=== PATIENT | male | born 1940 | race Caucasian/White ===

== ENCOUNTER → 2018-10-23 | Outpatient (CLI) | payer MEDICARE ==
--- NOTE | 2018-10-23 16:52 | CT ---
EXAMINATION TYPE: CT abdomen pelvis wo con DATE OF EXAM: 10/23/2018 COMPARISON: None HISTORY: Left side inguinal pain. CT DLP: 613 mGycm Automated exposure control for dose reduction was used. TECHNIQUE: Helical acquisition of images was performed from the lung bases through the pelvis. FINDINGS: Lack of intravenous contrast limits evaluation of the solid viscera. LUNG BASES: There is partial visualization of cardiomegaly. Minimal bibasilar subsegmental atelectasi s is noted. LIVER/GB: Unenhanced liver is unremarkable. Gallbladder is surgically absent. PANCREAS: No significant abnormality is seen. SPLEEN: No significant abnormality is seen. ADRENALS: No significant abnormality is seen. KIDNEYS: There is bilateral cortical renal thinning. A peripherally calcified left upper pole 1.8 cm lesion is seen that is incompletely characterized as well as an elongated hypoattenuated lesion that appears to blend with a prominent, Mt on series 3 image 27 requiring further evaluation. Renal ar terial calcifications are also seen. No hydronephrosis. FREE AIR: No free air is visualized REPRODUCTIVE ORGANS: Homogenous with central zone calcifications. URINARY BLADDER: Nondistended and incompletely evaluated. ADENOPATHY: There is a a peripherally calcified rounded structure in the right mesorectal fat that m ay represent a calcified lymph node measuring 1.3 cm in short axis on series 3 image 73. Overall this is likely benign with adjacent similar appearing structure inferior to this on image 76. No concerni ng adenopathy is seen within the abdomen or pelvis. OSSEOUS STRUCTURES: Mild multilevel degenerative changes of the spine are present as well as diffuse osseous demineralization. BOWEL: There is a left inguinal hernia containing sigmoid colon. No proximal dilatation of sigmoid c olon or distal complete decompression to indicate current incarceration/obstruction. There are few co lonic diverticula present without pericolonic fat stranding. Overall no dilated large or small bowel. 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 The firs t is seen on series 3 image 33 with calcified intimal flap than on series 3 image 44 and subsequently an series 3 image 49. No aneurysmal dilatation is seen. Extensive calcific atheromatous changes of t he abdominal aorta are noted. IMPRESSION: 1. SIGMOID COLON CONTAINING LEFT INGUINAL HERNIA. NO CURRENT EVIDENCE OF BOWEL OBSTRUCTION. 2. MULTIFOCAL CHRONIC INFRARENAL ABDOMINAL AORTIC DISSECTION. CTA ABDOMEN AND PELVIS COULD FURTHER SESS THIS FINDING. 3. LEFT RENAL LESIONS REQUIRING FURTHER EVALUATION. THREE-PHASE ENHANCED CT IS RECOMMENDED OF THE ABD OMEN. IF LABORATORY VALUES ARE NOT FITTING MRI COULD BE PERFORMED WITH A LOWER GFR. IF MRI CANNOT BE PERFORMED ULTRASOUND WOULD BE RECOMMENDED.
== END | disposition home or self-care (01) ==
LOC: RADCTMAIN 13:01
PROVIDERS: ATTEND Surgery Plastic and Reconstructive Surgery
DX: K40.90 Unilateral inguinal hernia, without obstruction or gangrene, not specified as recurrent (principal); I71.02 Dissection of abdominal aorta; N28.9 Disorder of kidney and ureter, unspecified; Z87.19 Personal history of other diseases of the digestive system
CPT/HCPCS: 74176

== ENCOUNTER 2018-10-29 15:23 | Observation (INO) | payer MEDICARE ==
[2018-10-29 18:33] LABS: Basophils # (A) 0.1 k/uL (0-0.2); Basophils % (A) 1 %; Eosinophils # (A) 0.1 k/uL (0-0.7); Eosinophils % (A) 1 %; HCT 47.8 % (39.0-53.0); Lymphocytes # (A) 1.4 k/uL (1.0-4.8); Lymphocytes % (A) 18 %; MCH 32.5 pg (25.0-35.0); MCHC 33.5 g/dL (31.0-37.0); MCV 96.9 fL (80.0-100.0); Mean Platelet Volume 10.8; Monocytes # (A) 0.5 k/uL (0-1.0); Monocytes % (A) 6 %; Neutrophils # (A) 5.6 k/uL (1.3-7.7); Neutrophils % (A) 72 %; Platelet Count 150 k/uL (150-450); RBC 4.94 m/uL (4.30-5.90); RDW 13.5 % (11.5-15.5); WBC 7.8 k/uL (3.8-10.6)
[2018-10-29 18:44] LABS: Creatine Kinase 46 U/L (55-170)
[2018-10-29 18:45] LABS: Albumin 4.3 g/dL (3.5-5.0); Calcium 9.6 mg/dL (8.4-10.2); Magnesium 1.8 mg/dL (1.6-2.3); Potassium 4.4 mmol/L (3.5-5.1); Total Bilirubin 0.4 mg/dL (0.2-1.3); Total Protein 7.1 g/dL (6.3-8.2)
[2018-10-29 18:46] LABS: INR 1.1 (<1.2); Prothrombin Time 10.9 sec (9.0-12.0)
[2018-10-29 18:56] LABS: Troponin I <0.012 ng/mL (0.000-0.034)
--- NOTE | 2018-10-29 19:13 | XR ---
EXAMINATION TYPE: XR chest 2V DATE OF EXAM: 10/29/2018 COMPARISON: NONE HISTORY: Chest pain TECHNIQUE: Frontal and lateral views of the chest are obtained. FINDINGS: There is no heart failure nor confluent pneumonic infiltrate. Costophrenic angles are fair ly clear. There is minimal pleural reaction at the posterior lung bases on the lateral view. Thoracic aorta is atheromatous. Bony thorax is intact. IMPRESSION: Minimal pleural reaction at the lung bases. Normal heart.
--- NOTE | 2018-10-29 19:25 | ED ---
General Adult HPI - General Chief complaint: Recheck/Abnormal Lab/Rx Stated complaint: trevor ravi tests Source: patient, RN notes reviewed Mode of arrival: ambulatory Limitations: no limitations - History of Present Illness Initial comments: 78-year-old male presents to the emergency department for a chief complaint of abnormal computed tomography scan. Patient was sent in by Dr. Rodrigez for 2 areas of focal chronic dissection confirmed in the infrarenal abdominal aorta. Patient states this CT was ordered to image and inguinal hernia and they found the dissection. He denies any chest pain or shortness of breath. Patient denies any abdominal pain. Patient takes Toprol for blood pressure medication and is on Eliquis for A. fib. Patient has no other complaints at this time including shortness of breath, chest pain, abdominal pain, nausea or vomiting, headache, or visual changes. - Related Data Home Medications Medication Instructions Recorded Confirmed ALPRAZolam [Xanax] 0.25 mg PO Q6HR PRN 09/19/14 01/03/15 Acetaminophen Butalb/Cafn 1 tab PO TID PRN 09/19/14 01/03/15 Alaway 1 drop BOTH EYES BID 09/19/14 01/03/15 Allopurinol [Zyloprim] 300 mg PO DAILY 09/19/14 01/03/15 Calcium Carbonate [Tums] 750 mg PO HS 09/19/14 01/03/15 Centrum Silver 50 Plus For Men 1 tab PO DAILY 09/19/14 01/03/15 Chlorpheniramine Maleate 4 mg PO Q4-6H PRN 09/19/14 01/03/15 [Chlor-Trimeton] Olmesartan Medoxomil [Benicar] 20 mg PO AC-LUNCH 09/19/14 01/03/15 [place] 3 Lemon Fish [id number] 120mg 1 tab PO BID 09/19/14 01/03/15 Omeprazole [PriLOSEC] 20 mg PO Q48H 09/19/14 01/03/15 Rivaroxaban [Xarelto] 20 mg PO HS 09/19/14 01/03/15 Simvastatin [Zocor] 40 mg PO HS 09/19/14 01/03/15 Metoprolol Succinate [Toprol XL] 12.5 mg PO TID 12/28/14 01/03/15 Ciclopirox [Loprox] 30 ml TP Q72H 01/03/15 01/03/15 Clobetasol Propionate [Olux] 10 gm TP DAILY 01/03/15 01/03/15 metroNIDAZOLE 1% GEL [Metrogel] 1 applic TOPICAL BID 01/03/15 01/03/15 Previous Rx's Medication Instructions Recorded Magnesium Chloride [Slow Mag] 128 mg PO ONCE #1 tablet.er 09/23/14 Spironolactone [Aldactone] 25 mg PO DAILY #1 tablet 09/23/14 amLODIPine BESYLATE [Norvasc] 2.5 mg PO BID #100 09/23/14 HYDROcodone/APAP 5-325MG [[place] 1 - 2 each PO Q6HR PRN #90 tab 01/04/15 5-325] Allergies Allergy/AdvReac Type Severity Reaction Status Date / Time No Known Allergies Allergy Verified 10/29/18 22:19 Review of Systems ROS Statement: Those systems with pertinent positive or pertinent negative responses have been documented in the HPI. ROS Other: All systems not noted in ROS Statement are negative. Past Medical History Past Medical History: Atrial Fibrillation, Eye Disorder, GERD/Reflux, Hyperlipidemia, Hypertension, Memory Impairment, Osteoarthritis (OA), Sleep Apnea/CPAP/BIPAP Additional Past Medical History / Comment(s): 01/03/15 Pt admitted for floor s/p Total L knee. 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 USES CPAP AT HOME-INSTRUCTED TO BRING DAY OF SURGERY, VERY DRY EYES History of Any Multi-Drug Resistant Organisms: None Reported Past Surgical History: Cholecystectomy, Heart Catheterization, Hernia Repair Additional Past Surgical History / Comment(s): 01/03/15 Total L knee arthroplasty. LT EYE CATARACT, RT KNEE ARTHROCOPY AND REPAIR OF MENISCUS TEAR, COLONOSCOPY, ORIF LT WRIST Past Anesthesia/Blood Transfusion Reactions: No Reported Reaction Past Psychological History: Anxiety Smoking Status: Former smoker Past Alcohol Use History: Occasional Past Drug Use History: None Reported - Past Family History Father Family Medical History: Myocardial Infarction ([place]) Additional Family Medical History / Comment(s): Father at age 51 yrs of an [place]. Mother Family Medical History: Hypertension Additional Family Medical History / Comment(s): Mother at age 34 yrs from suicide. General Exam Limitations: no limitations General appearance: alert, in no apparent distress (Well appearing, pleasant) Head exam: Present: atraumatic, normocephalic, normal inspection Eye exam: Present: normal appearance, PERRL, EOMI. Absent: scleral icterus, conjunctival injection, periorbital swelling ENT exam: Present: normal exam, mucous membranes moist Neck exam: Present: normal inspection, full ROM. Absent: tenderness, meningismus, lymphadenopathy Respiratory exam: Present: normal lung sounds bilaterally. Absent: respiratory distress, wheezes, rales, rhonchi, stridor Cardiovascular Exam: Present: regular rate, normal rhythm, normal heart sounds. Absent: bradycardia, tachycardia, irregular rhythm GI/Abdominal exam: Present: soft, normal bowel sounds. Absent: distended, tenderness, guarding, rebound, rigid, mass, pulsatile mass Neurological exam: Present: alert, oriented X3, CN II-XII intact Psychiatric exam: Present: normal affect, normal mood Course Vital Signs 10/29/18 10/29/18 10/29/18 16:47 19:28 19:50 Temperature 97.8 F 97.5 F L Pulse Rate 81 83 75 Respiratory 18 18 16 Rate Blood Pressure 150/84 125/95 118/73 O2 Sat by Pulse 99 97 95 Oximetry 10/29/18 21:04 Temperature Pulse Rate 89 Respiratory 18 Rate Blood Pressure 138/78 O2 Sat by Pulse 97 Oximetry EKG Findings - EKG Comments: EKG Findings:: Atrial fibrillation, ventricular rate 90, QRS duration 82, QTC 445 Medical Decision Making - Medical Decision Making 78-year-old male with a computed medical history presents to the emergency department for an abnormal computed tomography scan sent in by Dr. Rodrigez. Patient has what appears to be a chronic dissection of the infrarenal aorta. He states he got the scan because they were imaging an inguinal hernia when they found the dissection. He states Dr. Rodrigez told him to present to the emergency department. On exam patient is well-appearing. EKG does show atrial fibrillation, patient is currently on thinners for this. Lungs are clear to auscultation bilaterally. Patient is well-appearing. No abdominal mass noted. CBC and CMP are unremarkable. Troponin is negative. Chest x-ray showed minimal pleural reaction at the lung bases, otherwise normal heart. Vitals are stable. Blood pressure is controlled. According to Dr. Rordigez patient is to be admitted to Dr. Jiménez. Discussed with Dr Frazier. - Lab Data Result diagrams: 10/29/18 18:01 10/29/18 18:01 Lab Results 10/29/18 10/29/18 10/29/18 Range/Units 18:01 18:01 18:01 WBC 7.8 (3.8-10.6) k/uL RBC 4.94 (4.30-5.90) m/uL Hgb 16.0 (13.0-17.5) gm/dL Hct 47.8 (39.0-53.0) % MCV 96.9 (80.0-100.0) fL MCH 32.5 (25.0-35.0) pg MCHC 33.5 (31.0-37.0) g/dL RDW 13.5 (11.5-15.5) % Plt Count 150 (150-450) k/uL Neutrophils % 72 % Lymphocytes % 18 % Monocytes % 6 % Eosinophils % 1 % Basophils % 1 % Neutrophils # 5.6 (1.3-7.7) k/uL Lymphocytes # 1.4 (1.0-4.8) k/uL Monocytes # 0.5 (0-1.0) k/uL Eosinophils # 0.1 (0-0.7) k/uL Basophils # 0.1 (0-0.2) k/uL PT (9.0-12.0) sec INR (<1.2) APTT (22.0-30.0) sec Sodium 137 (137-145) mmol/L Potassium 4.4 (3.5-5.1) mmol/L Chloride 102 (98-107) mmol/L Carbon Dioxide 27 (22-30) mmol/L Anion Gap 8 mmol/L BUN 19 (9-20) mg/dL Creatinine 1.02 (0.66-1.25) mg/dL Est GFR (CKD-EPI)AfAm 81 (>60 ml/min/1.73 sqM) Est GFR (CKD-EPI)NonAf 70 (>60 ml/min/1.73 sqM) Glucose 115 H (74-99) mg/dL Calcium 9.6 (8.4-10.2) mg/dL Magnesium 1.8 (1.6-2.3) mg/dL Total Bilirubin 0.4 (0.2-1.3) mg/dL AST 30 (17-59) U/L ALT 35 (21-72) U/L Alkaline Phosphatase 84 (38-126) U/L Total Creatine Kinase 46 L (55-170) U/L CK-MB (CK-2) 1.0 (0.0-2.4) ng/mL CK-MB (CK-2) Rel Index 2.2 Troponin I <0.012 (0.000-0.034) ng/mL Total Protein 7.1 (6.3-8.2) g/dL Albumin 4.3 (3.5-5.0) g/dL 10/29/18 Range/Units 18:01 WBC (3.8-10.6) k/uL RBC (4.30-5.90) m/uL Hgb (13.0-17.5) gm/dL Hct (39.0-53.0) % MCV (80.0-100.0) fL MCH (25.0-35.0) pg MCHC (31.0-37.0) g/dL RDW (11.5-15.5) % Plt Count (150-450) k/uL Neutrophils % % Lymphocytes % % Monocytes % % Eosinophils % % Basophils % % Neutrophils # (1.3-7.7) k/uL Lymphocytes # (1.0-4.8) k/uL Monocytes # (0-1.0) k/uL Eosinophils # (0-0.7) k/uL Basophils # (0-0.2) k/uL PT 10.9 (9.0-12.0) sec INR 1.1 (<1.2) APTT 25.0 (22.0-30.0) sec Sodium (137-145) mmol/L Potassium (3.5-5.1) mmol/L Chloride (98-107) mmol/L Carbon Dioxide (22-30) mmol/L Anion Gap mmol/L BUN (9-20) mg/dL Creatinine (0.66-1.25) mg/dL Est GFR (CKD-EPI)AfAm (>60 ml/min/1.73 sqM) Est GFR (CKD-EPI)NonAf (>60 ml/min/1.73 sqM) Glucose (74-99) mg/dL Calcium (8.4-10.2) mg/dL Magnesium (1.6-2.3) mg/dL Total Bilirubin (0.2-1.3) mg/dL AST (17-59) U/L ALT (21-72) U/L Alkaline Phosphatase (38-126) U/L Total Creatine Kinase (55-170) U/L CK-MB (CK-2) (0.0-2.4) ng/mL CK-MB (CK-2) Rel Index Troponin I (0.000-0.034) ng/mL Total Protein (6.3-8.2) g/dL Albumin (3.5-5.0) g/dL - Radiology Data Radiology results: report reviewed Disposition Clinical Impression: Aortic dissection, abdominal Disposition: ADMITTED IP TO THIS HOSP Condition: Good Is patient prescribed a controlled substance at d/c from ED?: No Time of Disposition: 20:18
[2018-10-29] MEDS ORDERED: NALOXONE 0.4 MG/ML 1 ML VIAL IV PRN (20:09)
[2018-10-29] MEDS ORDERED: SODIUM CHLORIDE 0.9% 1,000 ML IV SCH (20:15)
[2018-10-29] MEDS: METOPROLOL SUCCINATE (ER) 25 MG TAB.ER.24H PO SCH (22:37)
--- NOTE | 2018-10-30 11:23 | CONS ---
CONSULTATION Mr. Burrows is a 78-year-old male with a history of hypertension, history of chronic persistent atrial fibrillation, who had a left inguinal hernia, underwent CT scan as part of his evaluation and subsequently, CT angiogram and was found to have a chronic dissection in the abdominal aorta and because of that, he was referred to the emergency room, subsequently admitted. Patient denies any prior history or knowledge of a dissection or an aneurysm. He is reasonably active physically, walks a mile without any difficulty. Denies any dyspnea. No dizziness. No palpitation. No syncope. He has the atrial fibrillation that has been persistent, but has been asymptomatic in that regard. He is feeling well at this time without any change in his status. His coronary risk factors are remarkable for hyperlipidemia, hypertension. He is nonsmoker, nondiabetic. MEDICATION: Include Cozaar 50 mg daily, Xarelto 20 mg daily, Aldactone 12.5 mg daily, Lozol 1.5 mg daily, Toprol-XL 150 mg daily, Celexa 10 mg daily, simvastatin 40 mg daily, Dyazide. REVIEW OF SYSTEMS: RESPIRATORY SYSTEM: He has no recent history of wheezing, cough, or history of obstructive lung disease. GI SYSTEM: No recent GI bleeding noted. No peptic ulcer disease. He is dehydrated. SYSTEM: No hematuria. Some symptoms of dysuria. NERVOUS SYSTEM: He had a remote history of stroke without recurrence. PHYSICAL EXAMINATION: A 78-year-old male, alert, oriented, in no apparent distress. Blood pressure 148/80 with a heart in the 80s. HEAD: Normocephalic. EYES: Sclerae nonicteric. NECK: Good upstroke, no bruit, no jugular venous distension. LUNGS: Clear to auscultation. HEART: Irregularly irregular, S1, S2. No S3 with systolic murmur heard at the base. No diastolic murmur, no rub. ABDOMEN: Soft, mild tenderness in the left inguinal area. Positive bowel sounds, no organomegaly. EXTREMITIES: No edema, intact pulses. LAB DATA: Revealed a BUN and creatinine of 19 and 1.02, potassium 4.4. Troponin less than 0.012. Hemoglobin of 16, white blood cell of 7.8. EKG reveals atrial fibrillation with nonspecific ST-T wave changes, cannot exclude a prior inferior myocardial infarction. Chest x-ray shows no evidence of acute infiltrate. CT scan of the abdomen performed yesterday shows moderate atherosclerotic changes with no hemodynamic significant stenosis in the abdominal aorta. There are two areas of focal chronic dissection in the infrarenal abdominal aorta with no aneurysmal changes. IMPRESSION: 1. Appearance of chronic dissection in the abdominal aorta, asymptomatic, duration unknown. 2. Chronic persistent atrial fibrillation. 3. Hypertension. 4. Hyperlipidemia. 5. History of inguinal hernia. RECOMMENDATION: From the cardiac standpoint, the patient had an echocardiogram done recently that showed a preserved ventricular size and systolic function. I will resume his routine medication at home. Patient will need evaluation by Vascular Surgery. I do not see any emergency for surgical intervention at this time. If surgical intervention is needed, he may benefit from a myocardial perfusion imaging that can be done as an outpatient. Thank you for this consult. Will follow with you. OSBALDO / YEVGENIYN: [id number] /
[2018-10-30] MEDS: METOPROLOL SUCCINATE (ER) 25 MG TAB.ER.24H PO SCH (12:27)
[2018-10-30 13:56] VITALS: BMI 23.3
--- NOTE | 2018-10-30 15:27 | P.DS ---
Providers Date of admission: 10/29/18 19:57 Expected date of discharge: 10/30/18 Attending physician: Maris Nguyen Consults: 10/30/18 09:09 Consult Physician Urgent Consulting Provider: Moose Maxwell Consult Reason/Comments: abn ct poss infrarenal aortic dissection Do you want consulting provider notified?: Yes 10/30/18 09:15 Consult Physician Urgent Consulting Provider: Anthony Lopez Consult Reason/Comments: afib Do you want consulting provider notified?: Yes Primary care physician: [facility] Course: 78-year-old who lives in [facility] presented to the emergency room to be evaluated for an abnormal computerized CAT scan abdomen and pelvis. Patient had a computed tomography scan to evaluate a known left inguinal hernia. The computed tomography scan was done it did find a chronic dissection in the abdominal aorta. Because of the abnormal findings on the CAT scan patient was referred to the emergency room and subsequently was admitted. Patient has been seen by cardiology as well as vascular service. Patient does have a history of atrial fibrillation that has been persistent patient has been asymptomatic and is on Xarelto. Patient denied chest pain dizziness or lightheadedness or back pain when questioning patient had a recent echocardiogram done which did show preserved ventricular size and systolic function. Cardiology recommended that the patient could be continued on his Xarelto in follow-up in the office with no further cardiac workup indicated at this time. Additionally patient was seen by vascular surgery . Vascular disease the patient for CAT scan of the abdomen which showed moderate atherosclerotic changes to areas of focal chronic dissection in the infrarenal abdominal aorta with no aneurysm changes. Vascular indicated there was no surgical intervention indicated at this time and that it needs to be followed it could be done in the outpatient setting labs were reviewed the hemoglobin 16 white count 7.8 electrolytes within normal limits Impression discharge diagnoses A known left inguinal hernia Persistent atrial fibrillation controlled ventricular response on Xarelto An abnormal CAT scan of the abdomen pelvis showed moderate atherosclerotic changes in the area of focal chronic dissection in the infrarenal abdominal aorta with no aneurysm the changes A recent echocardiogram showed preserved LV function Hypertension Hyperlipidemia Appearance of chronic dissection in the abdominal aorta asymptomatic duration unknown The above impression and plan of care have been discussed and directed by signing physician. Shala Barrow nurse practitioner acting as scribe for signing physician. Patient Condition at Discharge: Good Plan - Discharge Summary Discharge Rx Participant: No New Discharge Prescriptions: Continue Simvastatin [Zocor] 40 mg PO HS Rivaroxaban [Xarelto] 20 mg PO HS ALPRAZolam [Xanax] 0.25 mg PO TID PRN PRN Reason: Anxiety Alaway 1 drop BOTH EYES BID Chlorpheniramine Maleate [Chlor-Trimeton] 4 mg PO Q4H PRN PRN Reason: Allergy Symptoms Calcium Carbonate [Tums] 750 mg PO HS Allopurinol [Zyloprim] 300 mg PO DAILY Triamterene-Hctz 37.5-25Mg [Dyazide 37.5-25 Capsule] 1 cap PO DAILY Buckhead-3 Fatty Acids/Fish Oil [Buckhead-3 Fish Oil 1,200 mg Sfgl] 1 cap PO DAILY Multivit-Min/FA/Lycopen/Lutein [Centrum Silver Men Tablet] 1 tab PO DAILY Nystatin 100,000 Unit/gm Powd [Mycostatin Powder] 1 applic TOPICAL DAILY Butalb/APAP/Caff 50-325-40Mg [Fioricet 50-325-40] 1 - 2 tab PO Q4H PRN MDD 6 TABS PRN Reason: Headache Allopurinol [Zyloprim] 100 mg PO DAILY Omeprazole [PriLOSEC] 20 mg PO DAILY Citalopram Hydrobromide [CeleXA] 10 mg PO DAILY Metoprolol Succinate [Toprol XL] 100 mg PO QAM Metoprolol Succinate (ER) [Toprol XL] 50 mg PO HS Indapamide [Lozol] 1.25 mg PO DAILY Spironolactone [Aldactone] 12.5 mg PO DAILY Losartan [Cozaar] 50 mg PO HS Discharge Medication List ALPRAZolam [Xanax] 0.25 mg PO TID PRN 09/19/14 [History] Alaway 1 drop BOTH EYES BID 09/19/14 [History] Allopurinol [Zyloprim] 300 mg PO DAILY 09/19/14 [History] Calcium Carbonate [Tums] 750 mg PO HS 09/19/14 [History] Chlorpheniramine Maleate [Chlor-Trimeton] 4 mg PO Q4H PRN 09/19/14 [History] Rivaroxaban [Xarelto] 20 mg PO HS 09/19/14 [History] Simvastatin [Zocor] 40 mg PO HS 09/19/14 [History] Allopurinol [Zyloprim] 100 mg PO DAILY 10/30/18 [History] Butalb/APAP/Caff 50-325-40Mg [Fioricet 50-325-40] 1 - 2 tab PO Q4H PRN MDD 6 TABS 10/30/18 [History] Citalopram Hydrobromide [CeleXA] 10 mg PO DAILY 10/30/18 [History] Indapamide [Lozol] 1.25 mg PO DAILY 10/30/18 [History] Losartan [Cozaar] 50 mg PO HS 10/30/18 [History] Metoprolol Succinate (ER) [Toprol XL] 50 mg PO HS 10/30/18 [History] Metoprolol Succinate [Toprol XL] 100 mg PO QAM 10/30/18 [History] Multivit-Min/FA/Lycopen/Lutein [Centrum Silver Men Tablet] 1 tab PO DAILY [History] Nystatin 100,000 Unit/gm Powd [Mycostatin Powder] 1 applic TOPICAL DAILY [History] Buckhead-3 Fatty Acids/Fish Oil [Buck[place]-3 Fish Oil 1,200 mg Sfgl] 1 cap PO DAILY [History] Omeprazole [PriLOSEC] 20 mg PO DAILY 10/30/18 [History] Spironolactone [Aldactone] 12.5 mg PO DAILY 10/30/18 [History] Triamterene-Hctz 37.5-25Mg [Dyazide 37.5-25 Capsule] 1 cap PO DAILY 10/30/18 [ History] Follow up Appointment(s)/Referral(s): Conor Snell MD [Primary Care Provider] - 1-2 days Maris Nguyen MD [STAFF PHYSICIAN] - 12/08/18 Moose Maxwell MD [STAFF PHYSICIAN] - 2 Weeks Patient Instructions/Handouts: Coronary Artery Disease (DC), Heart Healthy Diet (DC) Discharge Disposition: HOME SELF-CARE
--- NOTE | 2018-10-30 15:41 | CONS ---
CONSULTATION This patient is a 78-year-old gentleman with a history of hypertension, history of chronic persistent atrial fibrillation, who had a left inguinal hernia diagnosed, and patient was cleared for surgery. He had a CT scan of the abdomen and was found to have a chronic dissection of the abdominal aorta area. There are some moderate atherosclerotic changes without hemodynamically significant stenosis seen in the abdominal aorta or its branches. There are two areas of focal chronic dissection confirmed in the infrarenal abdominal aorta and dilatation and dissection progressing to the iliac artery. I was consulted for evaluation. SURGICAL HISTORY: Patient had a cholecystectomy in the past. PHYSICAL EXAMINATION: Patient was seen in his room, lying comfortably in bed. NECK: Supple. Trachea central. CHEST: Clear on auscultation. ABDOMEN: Soft, nontender. VASCULAR EXAMINATION: Femorals are palpable bilaterally. Patient has a large inguinal hernia which is reducible. IMPRESSION: Chronic small area of dissection to the infrarenal aorta. At this point there is no evidence of any vascular compromise. RECOMMENDATION: Control of the blood pressure. No indication for surgery. Patient can be discharged from the vascular point of view. The patient will follow up in my office in 2 weeks. MMODL / IJN: [id number] /
[2018-10-30 16:46] VITALS: BP 115/67; PULSE 99; RESP 18; TEMP 98.3
[2018-10-30] MEDS ORDERED: RIVAROXABAN 20 MG TAB PO SCH (21:00)
[2018-10-30] MEDS ORDERED: METOPROLOL SUCCINATE (ER) 50 MG TAB.ER.24H PO SCH (21:00)
[2018-10-30] MEDS ORDERED: LOSARTAN 50 MG TAB PO SCH (21:00)
[2018-10-30] MEDS ORDERED: ATORVASTATIN 20 MG TAB PO SCH (21:00)
[2018-10-31] MEDS ORDERED: TRIAMTERENE-HCTZ 37.5-25MG 1 EACH CAP PO SCH (09:00)
[2018-10-31] MEDS ORDERED: METOPROLOL SUCCINATE (ER) 100 MG TAB.ER.24H PO SCH (09:00)
--- NOTE | 2018-11-02 19:33 | P.GSHP ---
History of Present Illness H&P Date: 10/29/18 Past Medical History Past Medical History: Atrial Fibrillation, Eye Disorder, GERD/Reflux, Hyperlipidemia, Hypertension, Memory Impairment, Osteoarthritis (OA), Sleep Apnea/CPAP/BIPAP Additional Past Medical History / Comment(s): 01/03/15 Pt admitted for floor s/p Total L knee. 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 USES CPAP AT HOME-INSTRUCTED TO BRING DAY OF SURGERY, VERY DRY EYES History of Any Multi-Drug Resistant Organisms: None Reported Past Surgical History: Cholecystectomy, Heart Catheterization, Hernia Repair Additional Past Surgical History / Comment(s): 01/03/15 Total L knee arthroplasty. LT EYE CATARACT, RT KNEE ARTHROCOPY AND REPAIR OF MENISCUS TEAR, COLONOSCOPY, ORIF LT WRIST Past Anesthesia/Blood Transfusion Reactions: No Reported Reaction Past Psychological History: Anxiety Smoking Status: Former smoker Past Alcohol Use History: Occasional Past Drug Use History: None Reported - Past Family History Father Family Medical History: Myocardial Infarction ([place]) Additional Family Medical History / Comment(s): Father at age 51 yrs of an [place]. Mother Family Medical History: Hypertension Additional Family Medical History / Comment(s): Mother at age 34 yrs from suicide. Medications and Allergies Home Medications Medication Instructions Recorded Confirmed Type ALPRAZolam [Xanax] 0.25 mg PO TID PRN 09/19/14 10/30/18 History Alaway 1 drop BOTH EYES BID 09/19/14 10/30/18 History Allopurinol [Zyloprim] 300 mg PO DAILY 09/19/14 10/30/18 History Calcium Carbonate [Tums] 750 mg PO HS 09/19/14 10/30/18 History Chlorpheniramine Maleate 4 mg PO Q4H PRN 09/19/14 10/30/18 History [Chlor-Trimeton] Rivaroxaban [Xarelto] 20 mg PO HS 09/19/14 10/30/18 History Simvastatin [Zocor] 40 mg PO HS 09/19/14 10/30/18 History Allopurinol [Zyloprim] 100 mg PO DAILY 10/30/18 10/30/18 History Butalb/APAP/Caff 50-325-40Mg 1 - 2 tab PO Q4H PRN MDD 6 TABS 10/30/18 10/30/18 History [Fioricet 50-325-40] Citalopram Hydrobromide [CeleXA] 10 mg PO DAILY 10/30/18 10/30/18 History Indapamide [Lozol] 1.25 mg PO DAILY 10/30/18 10/30/18 History Losartan [Cozaar] 50 mg PO HS 10/30/18 10/30/18 History Metoprolol Succinate (ER) [Toprol 50 mg PO HS 10/30/18 10/30/18 History XL] Metoprolol Succinate [Toprol XL] 100 mg PO QAM 10/30/18 10/30/18 History Multivit-Min/FA/Lycopen/Lutein 1 tab PO DAILY 10/30/18 10/30/18 History [Centrum Silver Men Tablet] Nystatin 100,000 Unit/gm Powd 1 applic TOPICAL DAILY 10/30/18 10/30/18 History [Mycostatin Powder] Dundee-3 Fatty Acids/Fish Oil 1 cap PO DAILY 10/30/18 10/30/18 History [Dundee-3 Fish Oil 1,200 mg Sfgl] Omeprazole [PriLOSEC] 20 mg PO DAILY 10/30/18 10/30/18 History Spironolactone [Aldactone] 12.5 mg PO DAILY 10/30/18 10/30/18 History Triamterene-Hctz 37.5-25Mg 1 cap PO DAILY 10/30/18 10/30/18 History [Dyazide 37.5-25 Capsule] Allergies Allergy/AdvReac Type Severity Reaction Status Date / Time No Known Allergies Allergy Verified 10/30/18 09:49 Surgical - Exam Vital Signs Temp Pulse Resp BP Pulse Ox 97.8 F 81 18 150/84 99 10/29/18 16:47 10/29/18 16:47 10/29/18 16:47 10/29/18 16:47 10/29/18 16:47 Results - Labs 10/29/18 18:01 10/29/18 18:01
== END 2018-10-30 16:55 | disposition home or self-care (01) ==
LOC: EC 15:23 → 1SOBS 19:57
PROVIDERS: ADMIT Surgery Plastic and Reconstructive Surgery; ATTEND Surgery Plastic and Reconstructive Surgery
DX: I71.02 Dissection of abdominal aorta (principal); K40.90 Unilateral inguinal hernia, without obstruction or gangrene, not specified as recurrent; I48.2 Chronic atrial fibrillation; I70.0 Atherosclerosis of aorta; I48.1 Persistent atrial fibrillation; K21.9 Gastro-esophageal reflux disease without esophagitis; I11.9 Hypertensive heart disease without heart failure; G47.30 Sleep apnea, unspecified; E78.5 Hyperlipidemia, unspecified; M19.90 Unspecified osteoarthritis, unspecified site; R41.3 Other amnesia; Z99.89 Dependence on other enabling machines and devices; M10.9 Gout, unspecified; I49.5 Sick sinus syndrome; F41.9 Anxiety disorder, unspecified; Z79.01 Long term (current) use of anticoagulants; Z79.899 Other long term (current) drug therapy; Z86.73 Personal history of transient ischemic attack (TIA), and cerebral infarction without residual deficits; Z96.652 Presence of left artificial knee joint; Z90.49 Acquired absence of other specified parts of digestive tract; Z98.42 Cataract extraction status, left eye; Z87.891 Personal history of nicotine dependence; Z82.49 Family history of ischemic heart disease and other diseases of the circulatory system
CPT/HCPCS: 96361 ×2; 96360; 99284; 36415; 93005; 80053; 82550; 82553; 83735; 84484; 85025; 85610; 85730; 71046; G0378 ×2

== ENCOUNTER 2019-01-01 06:48 | Day surgery (SDC) | payer MEDICARE ==
--- NOTE | 2019-01-01 06:06 | P.GSHP ---
History of Present Illness H&P Date: 01/01/19 CHIEF COMPLAINT: Left inguinal hernia HISTORY OF PRESENT ILLNESS: The patient is a 78-year-old male with history of symptomatic left inguinal hernia with incarcerated colon. He had undergone multiple medical clearances including cardiac and vascular for history of aortic dissection. Now he presents for surgical excision. PAST MEDICAL HISTORY: See list. PAST SURGICAL HISTORY: See list. MEDICATIONS: See list. ALLERGIES: See list. SOCIAL HISTORY: No illicit drug use FAMILY HISTORY: No reports of Crohn's disease or inflammatory bowel disease REVIEW OF ORGAN SYSTEMS: CONSTITUTIONAL: No fevers or chills HEENT: No troubles with vision or hearing. No reports of dysphagia. ENDOCRINE: No reports of thyroid disorders. No diabetes. CARDIOVASCULAR: No heart attack. No chest pain. History of atrial fibrillation RESPIRATORY: No shortness of breath or pneumonia. GASTROINTESTINAL: No reports of recent blood in stools. Has gastroesophageal reflux disease NEURO: No reports of stroke or seizure disorders. Has history of memory impairment PSYCH: Has depression. No suicidal ideation. Has anxiety. HEMATOLOGIC: Has easy bruising or bleeding. On blood thinners. LYMPHATIC: The patient denies any lumps and bumps around the neck. GENITOURINARY: Denies any blood in urine or increased urinary frequency. MUSCULOSKELETAL: Has back pain, stiffness or joint arthritis. Has gout. SKIN: Has skin cancer of the nose. No rash. PHYSICAL EXAM: VITAL SIGNS: Reviewed GENERAL: Well-developed in no acute distress. HEENT: No sclera icterus. Extraocular movements grossly intact. Moist buccal mucosa. Has healing wound along right nares less than 1-cm from recent cancer resection. Head is atraumatic, normocephalic. Hears conversational speech. No nasal drainage. NECK: Supple without lymphadenopathy. CHEST: Non-labored respirations and equal bilateral excursions. CARDIOVASCULAR: Irregular rate with irregular rhythm. Palpable 2+ radial pulses. ABDOMEN: Soft. Nondistended. No peritonitis. Nontender. Palpable left groin hernia. MUSCULOSKELETAL: No clubbing, cyanosis or edema. NEUROLOGIC: No focal or lateralizing signs. Cranial nerves II through XII grossly intact. PSYCH: Appropriate affect. Alert and oriented to person, place and time. SKIN: Well perfused. Good skin turgor. LABS: Reviewed STUDIES: CT of the abdomen reviewed consistent with inguinal hernia containing sigmoid colon. ASSESSMENT: 1. Left inguinal hernia 2. Atrial fibrillation 3. Aortic dissection. PLAN: 1. Robotic assisted left inguinal hernia repair with mesh possible bilateral reviewed. H 2. Clearance from vascular surgeon and bread packer obtained for history of minor and chronic aortic dissection and atrial fibrillation obtained. 3. DVT prophylaxis 4. Antibiotic prophylaxis 5. Inpatient hospitalization for incarcerated left inguinal hernia including cardiac status described. Past Medical History Past Medical History: Atrial Fibrillation, Cancer, Eye Disorder, GERD/Reflux, Hyperlipidemia, Hypertension, Memory Impairment, Osteoarthritis (OA), Sleep Apnea/CPAP/BIPAP Additional Past Medical History / Comment(s): TIA 2008 affected speech but he is back to normal, Sick sinus syndrome, CARDIOMEGALY, GOUT, CONSTIPATION, BASAL CELL SKIN CANCER. HAS C-PAP MACHINE BUT DOES NOT USE BECAUSE IT NEEDS CLEANING., VERY DRY EYES, STATES HEPATITIS YEARS AGO., STATES RASH OR IRRITATION IN HIS GROIN-WAS USING CREAM FROM DR VIZCARRA IN THE PAST., HERNIA LEFT GROIN., CHRONIC DISSECTION ABD AORTA. History of Any Multi-Drug Resistant Organisms: None Reported Past Surgical History: Appendectomy, Cholecystectomy, Heart Catheterization Additional Past Surgical History / Comment(s): 01/03/15 Total L knee arthroplasty. LT EYE CATARACT, RT KNEE ARTHROCOPY AND REPAIR OF MENISCUS TEAR, COLONOSCOPY, ORIF LT WRIST Past Anesthesia/Blood Transfusion Reactions: No Reported Reaction Past Psychological History: Anxiety, Depression Additional Psychological History / Comment(s): . Smoking Status: Former smoker Past Alcohol Use History: Occasional Additional Past Alcohol Use History / Comment(s): STARTED SMOKING AT AGE 17 SMOKED 1PPD, QUIT 1963. Past Drug Use History: None Reported - Past Family History Father Family Medical History: Myocardial Infarction ([place]) Additional Family Medical History / Comment(s): Father at age 51 yrs of an [place]. Mother Family Medical History: Hypertension Additional Family Medical History / Comment(s): Mother at age 34 yrs from suicide. Medications and Allergies Home Medications Medication Instructions Recorded Confirmed Type ALPRAZolam [Xanax] 0.25 mg PO TID PRN 09/19/14 12/30/18 History Allopurinol [Zyloprim] 300 mg PO DAILY 09/19/14 12/30/18 History Rivaroxaban [Xarelto] 20 mg PO HS 09/19/14 12/30/18 History Simvastatin [Zocor] 40 mg PO HS 09/19/14 12/30/18 History Butalb/APAP/Caff 50-325-40Mg 1 - 2 tab PO Q4H PRN 10/30/18 12/30/18 History [Fioricet 50-325-40] Losartan [Cozaar] 50 mg PO HS 10/30/18 12/30/18 History Metoprolol Succinate (ER) [Toprol 50 mg PO HS 10/30/18 12/30/18 History XL] Metoprolol Succinate [Toprol XL] 100 mg PO QAM 10/30/18 12/30/18 History Omeprazole [PriLOSEC] 20 mg PO DAILY 10/30/18 12/30/18 History Ketotifen Fumarate [Alaway] 1 drop BOTH EYES DAILY PRN 12/30/18 12/30/18 History Sennosides/Docusate Sodium 1 each PO DAILY PRN 12/30/18 12/30/18 History [Docusate Sodium-Sennosides Tab] Allergies Allergy/AdvReac Type Severity Reaction Status Date / Time No Known Allergies Allergy Verified 12/30/18 11:18
[~2019-01-01 06:48] MED LIST: ACETAMINOPHEN IV (For NPO) 1,000 MG in EMPTY BAG 1 BAG IVPB ONE; DEXAMETHASONE SOD PHOSPHATE 10 MG/ML 1 ML VIAL IV ONE; LIDOCAINE 1% 20 ML VIAL (10MG/ML) FOR IV START INTRADERMA PRN; MIDAZOLAM (PF) 2 MG/2 ML VIAL IV PRN; ONDANSETRON 4 MG/2 ML VIAL IVP ONE; SCOPOLAMINE 1.5MG/72HR PATCH TRANSDERM ONE; ceFAZolin IN SWFI 2 GM/20 ML SYRINGE IVP ONE
[2019-01-01] MEDS: LACTATED RINGERS 1,000 ML IV SCH (07:48)
[2019-01-01 08:01] LABS: Basophils % (A) 1 %; Eosinophils # (A) 0.1 k/uL (0-0.7); Eosinophils % (A) 1 %; HCT 46.9 % (39.0-53.0); HGB 15.5 gm/dL (13.0-17.5); Lymphocytes # (A) 1.5 k/uL (1.0-4.8); Lymphocytes % (A) 22 %; MCH 32.3 pg (25.0-35.0); MCV 98.1 fL (80.0-100.0); Mean Platelet Volume 9.8; Monocytes # (A) 0.5 k/uL (0-1.0); Monocytes % (A) 7 %; Neutrophils # (A) 4.6 k/uL (1.3-7.7); Neutrophils % (A) 67 %; Platelet Count 160 k/uL (150-450); RBC 4.78 m/uL (4.30-5.90); RDW 13.5 % (11.5-15.5); WBC 6.9 k/uL (3.8-10.6)
[2019-01-01 08:15] LABS: Prothrombin Time 10.4 sec (9.0-12.0)
[2019-01-01 08:17] LABS: Albumin 4.5 g/dL (3.5-5.0); Calcium 9.5 mg/dL (8.4-10.2); Potassium 4.1 mmol/L (3.5-5.1); Total Bilirubin 0.5 mg/dL (0.2-1.3); Total Protein 7.3 g/dL (6.3-8.2)
[2019-01-01] MEDS: HEPARIN SODIUM,PORCINE 5,000 UNIT/ML 1 ML VIAL SQ ONE ×2 (08:21→08:24)
[2019-01-01] MEDS ORDERED: ROCURONIUM BROMIDE 10 MG/ML 10 ML VIAL IV ONE (08:59)
[2019-01-01] MEDS ORDERED: GLYCOPYRROLATE 0.2 MG/ML 2 ML VIAL ONE (08:59)
[2019-01-01] MEDS ORDERED: PHENYLEPHRINE-0.9% NACL SYG 1 MG/10 ML SYRINGE ONE (08:59)
[2019-01-01] MEDS ORDERED: PROPOFOL 10 MG/ML 20 ML VIAL IV ONE (08:59)
[2019-01-01] MEDS ORDERED: LIDOCAINE 1% INJ 10MG/ML (20 ML MDV) ONE (08:59)
[2019-01-01] MEDS ORDERED: fentaNYL (PF) 50 MCG/ML 2 ML AMP ONE (08:59)
[2019-01-01] MEDS ORDERED: SUCCINYLCHOLINE CHLORIDE 100 MG/5 ML SYR IV ONE (08:59)
[2019-01-01] MEDS ORDERED: NEOSTIGMINE 1 MG/ML 10 ML VIAL ONE (08:59)
[2019-01-01] MEDS ORDERED: BUPIVACAINE-EPI 0.5%-1:200,000 10 ML VIAL SQ ONE ×2 (09:31→09:33)
[2019-01-01] MEDS ORDERED: BACITRACIN OINT 1 EACH PACKET TOPICAL ONE (10:23)
[2019-01-01] MEDS ORDERED: METOCLOPRAMIDE 5 MG/ML 2 ML VIAL IVP PRN (10:48)
[2019-01-01] MEDS ORDERED: HYDROcodone/APAP 5-325MG 1 EACH TAB PO PRN (10:48)
[2019-01-01] MEDS ORDERED: HYDROmorphone 0.5 MG/0.5 ML SYRINGE IVP PRN (10:48)
[2019-01-01] MEDS ORDERED: NALOXONE 0.4 MG/ML 1 ML VIAL IV PRN (10:48)
[2019-01-01] MEDS ORDERED: ONDANSETRON 4 MG/2 ML VIAL IVP PRN (10:48)
[2019-01-01] MEDS ORDERED: KETOTIFEN 0.025% OPHTH DROPS 5 ML BTL BOTH EYES PRN (10:51)
[2019-01-01] MEDS ORDERED: ALPRAZolam 0.25 MG TAB PO PRN (10:51)
[2019-01-01] MEDS ORDERED: BUTALB/APAP/CAFF 50-325-40MG TAB PO PRN (10:51)
[2019-01-01] MEDS ORDERED: SENNOSIDES-DOCUSATE SODIUM 1 EACH TAB PO PRN (10:51)
[2019-01-01] MEDS: HYDROmorphone 0.5 MG/0.5 ML SYRINGE IVP PRN ×4 (10:52→11:48)
--- NOTE | 2019-01-01 10:57 | P.OP ---
Date of Procedure: 01/01/19 Description of Procedure: SURGEON: RODNEY MURCIA MD PREOPERATIVE DIAGNOSES: 1. Incarcerated left inguinal hernia with bowel obstruction involving sigmoid colon, initial 2. Chronic atrial fibrillation 3. History of aortic dissection 4. Hypertensive cardiomyopathy 5. Generalized anxiety disorder 6. Hyperlipidemia 7. Gastroesophageal reflux disease 8. Gout 9. Chronic anticoagulant therapy 10. Migraine headaches 11. Obstructive sleep apnea POSTOPERATIVE DIAGNOSES: 1. Incarcerated left inguinal hernia with bowel obstruction involving sigmoid colon, initial 2. Chronic atrial fibrillation 3. History of aortic dissection 4. Hypertensive cardiomyopathy 5. Generalized anxiety disorder 6. Hyperlipidemia 7. Gastroesophageal reflux disease 8. Gout 9. Chronic anticoagulant therapy 10. Migraine headaches 11. Obstructive sleep apnea 12. Left inguinal lipoma, 4 x 5 cm OPERATION: 1. Robotic assisted da Farhad Xi laparoscopic reduction and repair of incarcerated left inguinal hernia repair with ventralight ST mesh, 11.4 cm. 2. Excision of left inguinal lipoma 4 x 5 cm, subfascial Anesthesia: GETA, local Estimated Blood Loss (ml): 5 Pathology: other (Left inguinal lipoma) Condition: stable Disposition: floor COMPLICATIONS: None. Operative Findings: 1. Large left inguinal lipoma incarcerated involving sigmoid colon, reduced after insufflation of the abdomen 2. Large direct inguinal lipoma 3 cm, Nyhus type III 3. Adhesions along right lower quadrant from previous open appendectomy undisturbed 4. Inguinal lipoma 4 x 5 cm excised along the left inguinal canal 5. Console time 24 minutes INDICATIONS: The patient is a 78-year-old gentleman who presents with history of incarcerated left inguinal hernia. Now presents for definitive surgical intervention. Laparoscopic versus open and robotic approaches were discussed. Benefits and risks including bleeding, infection, injury to the vas deferens as well as sterility and chronic groin pain were reviewed. Placement of mesh was also described. Informed consent was obtained. DESCRIPTION: In the preoperative area, the patient was marked with indelible marker along the left groin. The patient was brought to the operating room and laid in supine position. After general induction, the abdomen had been prepped and draped in standard sterile fashion. Ioban draping was also placed. Prior to incision, a timeout protocol was confirmed with surgical team regarding patient's name including procedures to be performed and location along the left groin. Initial positioning for the robotic assisted ports were selected whereby 20 cm superior to the target anatomy, 0 degree 5 mm laparoscopic trocar entry was performed at the left upper quadrant. The abdomen was insufflated to 15 mmHg which he had tolerated well. Diagnostic laparoscopy demonstrated moderate omental adhesions from his previous open appendectomy. Additionally the sigmoid colon was incarcerated into the left groin with a large direct left inguinal hernia over 3 cm in size. The right groin was unremarkable. Next, along the epigastrium, 8 mm robot trocar was placed. An 8-mm robotic trocar was placed under direct visualization at the right upper quadrant. The 5 mm port was exchanged for a 8 mm trocar. All trocars were positioned between 8 to 10-cm apart from each other. The [employer] XI robot was primed, draped, prepared for docking along the upper abdomen of the patient. Gentle persistent pressure was placed over the left groin to reduce the incarcerated hernia. I then went to the [employer] Xi console. The educational assistant teacher was at bedside for exchange of the robot arms and equipment. At the left groin, over 3 cm direct inguinal hernia was identified. The hernia sac was evaginated whereby the peritoneum was scored using Endo scissors with cautery. The hernia sac had reached to the scrotum and was transected using Vessel sealer. Once completely reduced into the abdominal cavity, the peritoneal sac of the hernia was stripped with a lipoma identified. The sac and lipoma was resected and then passed off for further pathological analysis. The size of the hernia defect was 3 cm with intraoperative films obtained. Using a 2-0 VLOC, the peritoneal defect of the left inguinal hernia site was closed using a pursestring suture.. The defect was found to be completely closed with complete reduction of the left inguinal hernia was confirmed. As an onlay, an 11.[address] mesh by [employer] was cut in half and entered into the abdominal cavity via the 8 mm trocar. The mesh was tacked to the pelvis using 2-0 VLOC x 9-inch length sutures. The robot was undocked from the patient's bedside. I then rescrubbed into the case. Insufflation was released from the abdominal cavity and all instruments were removed from the abdominal cavity. Additional palm pressure was applied along the left groin as well as releasing any air along the scrotum and left groin. The rest of incisions were reapproximated using 4-0 Monocryl in a running subcuticular fashion. Local anesthetic was placed along the incision including for a groin block. Incisions were cleansed using dilute hydrogen peroxide. Liquid glue was applied to the skin. At the end of the procedure, the needle, sponge and instrument counts had been verified correct by the surgical nurse. The patient had tolerated the procedure well and was taken to the postanesthesia care unit in stable condition. Intraoperative findings were described to the patient's family who were pleased with the level of care.
[2019-01-01 13:46] VITALS: BMI 25.1
[2019-01-01] MEDS ORDERED: TAMSULOSIN 0.4 MG CAP.ER.24H PO ONE (14:00)
--- NOTE | 2019-01-01 15:30 | P.CONS ---
History of Present Illness - Reason for Consult Consult date: 01/01/19 Medical management Requesting physician: Maris Nguyen - Chief Complaint Laparoscopic left inguinal hernia repair, A. fib, CVA, hypertension, CK D - History of Present Illness 78-year-old male one of my office patient with known for the last 20 years with past medical history of CAD, A. fib, GERD, hypertension, hyperlipidemia and mild memory loss who presented to the office few weeks ago with complaint of a bulging sensation and discomfort in left inguinal area was diagnosed with large inguinal hernia and encouraged to see general surgery for possible repair despite the mild comorbidity. Patient ended up seen Dr. Rodrigez and was scheduled for elective up rescue because of inguinal hernia repair which was done today successfully. Patient has been off his anticoagulation for the last few days he was admitted to the hospital after the surgery. Review of Systems CONSTITUTIONAL: Well-developed no acute respiratory distress. EYES: No icterus sclerae, no conjunctivitis. Positive slight irritation of the left upper eyelid. EARS, NOSE, MOUTH, THROAT, and FACE: No sore throat, lymphadenopathy, carotid bruits or deformity. RESPIRATORY: No SOB cough or wheezes. CARDIOVASCULAR: No CP, Palpitation, PND, Orthopnea, or angina. GASTROINTESTINAL: No Abd pain, Nausea or vomiting, no Diarrhea or constipation, No GI Bleed, no distention or masses. GENITOURINARY: Negative for Hematuria or UTI, no kidney stones. INTEGUMENT/BREAST: Negative for any muscular injury with mild osteoarthritis.. HEMATOLOGIC/LYMPHATIC: Negative for bleed or purpura. MUSCULOSKELTAL: Negative for Myalgia or arthralgia. NEURLOGICAL: No LOC, Sz or syncope, blurred vision dizziness or abnormality.. BEHAVIORAL/PSYCH: Negative. ENDOCRINE: Negative. Past Medical History Past Medical History: Atrial Fibrillation, Cancer, Eye Disorder, GERD/Reflux, Hyperlipidemia, Hypertension, Memory Impairment, Osteoarthritis (OA), Sleep Apnea/CPAP/BIPAP Additional Past Medical History / Comment(s): TIA 2008 affected speech but he is back to normal, Sick sinus syndrome, CARDIOMEGALY, GOUT, CONSTIPATION, BASAL CELL SKIN CANCER. HAS C-PAP MACHINE BUT DOES NOT USE BECAUSE IT NEEDS CLEANING., VERY DRY EYES, STATES HEPATITIS YEARS AGO., STATES RASH OR IRRITATION IN HIS GROIN-WAS USING CREAM FROM DR VIZCARRA IN THE PAST., HERNIA LEFT GROIN., CHRONIC DISSECTION ABD AORTA. History of Any Multi-Drug Resistant Organisms: None Reported Past Surgical History: Appendectomy, Cholecystectomy, Heart Catheterization Additional Past Surgical History / Comment(s): 01/03/15 Total L knee arthroplasty. LT EYE CATARACT, RT KNEE ARTHROCOPY AND REPAIR OF MENISCUS TEAR, COLONOSCOPY, ORIF LT WRIST Past Anesthesia/Blood Transfusion Reactions: No Reported Reaction Past Psychological History: Anxiety, Depression Additional Psychological History / Comment(s): . Smoking Status: Former smoker Past Alcohol Use History: Occasional Additional Past Alcohol Use History / Comment(s): STARTED SMOKING AT AGE 17 SMOKED 1PPD, QUIT 1963. Past Drug Use History: None Reported - Past Family History Father Family Medical History: Myocardial Infarction (MD) Additional Family Medical History / Comment(s): Father at age 51 yrs of an MD. Mother Family Medical History: Hypertension Additional Family Medical History / Comment(s): Mother at age 34 yrs from suicide. Medications and Allergies Home Medications Medication Instructions Recorded Confirmed Type ALPRAZolam [Xanax] 0.25 mg PO TID PRN 09/19/14 01/01/19 History Allopurinol [Zyloprim] 300 mg PO DAILY 09/19/14 01/01/19 History Rivaroxaban [Xarelto] 20 mg PO HS 09/19/14 12/30/18 History Simvastatin [Zocor] 40 mg PO HS 09/19/14 01/01/19 History Butalb/APAP/Caff 50-325-40Mg 1 - 2 tab PO Q4H PRN 10/30/18 01/01/19 History [Fioricet 50-325-40] Losartan [Cozaar] 50 mg PO HS 10/30/18 01/01/19 History Metoprolol Succinate (ER) [Toprol 50 mg PO HS 10/30/18 01/01/19 History XL] Metoprolol Succinate [Toprol XL] 100 mg PO QAM 10/30/18 01/01/19 History Omeprazole [PriLOSEC] 20 mg PO DAILY 10/30/18 01/01/19 History Ketotifen Fumarate [Alaway] 1 drop BOTH EYES DAILY PRN 12/30/18 01/01/19 History Sennosides/Docusate Sodium 1 each PO DAILY PRN 12/30/18 12/30/18 History [Docusate Sodium-Sennosides Tab] Allergies Allergy/AdvReac Type Severity Reaction Status Date / Time No Known Allergies Allergy Verified 12/30/18 11:18 Physical Exam Vitals: Vital Signs Temp Pulse Resp BP Pulse Ox 01/01/19 12:57 82 16 90/68 98 01/01/19 12:32 84 16 92/73 97 01/01/19 12:17 102 H 16 92/53 99 01/01/19 12:01 86 16 99/54 99 01/01/19 11:44 86 16 116/61 99 01/01/19 11:29 82 16 119/56 99 01/01/19 11:14 90 16 155/74 99 01/01/19 10:59 90 16 159/77 100 01/01/19 10:44 100 16 162/73 97 01/01/19 10:29 98 F 120 H 16 117/86 97 01/01/19 08:23 82 102/58 100 01/01/19 07:25 98.1 F 70 16 153/83 94 L Intake and Output 01/01/19 01/01/19 01/01/19 06:59 14:59 22:59 Intake Total 1850 Output Total 5 Balance 1845 Intake: IV 1850 Output: Estimated Blood Loss 5 General Appearance: Alert, cooperative, no distress, appears stated age. Neck HEENT: Supple, no lymphadenopathy, no thyroid enlargement, no carotid bruits. Positive slight bruise on the left upper eyelid from probably covering the eye during surgery. Lungs: Clear to auscultation without crackles or wheezes no rhonchi, no deformity. Chest Wall: Chest wall normal expansion with deep inspiration no tenderness and no deformity was found on exam, no costochondral pain or discomfort. Heart: Regular rate S1-S2 positive history positive 2/6 ejection systolic murmur. Back: Symmetric, no curvature, ROM normal, no CVA tenderness. Abdomen: Soft positive bowel sound there is scar tissue from laparoscopy area with slight bit of bruise only with mild discomfort with deep palpation. Extremities: Extremities normal, atraumatic, no cyanosis or edema. Pulses: 2+ and symmetric. Skin: Skin color, texture, tugor normal, no rashes or lesions. Neurologic: Alert oriented x3 cranial nerves II through XII intact, no motor deficit, no abnormal balance or gait. Results CBC & Chem 7: 01/01/19 07:44 01/01/19 07:44 Labs: Abnormal Lab Results - Last 24 Hours (Table) 01/01/19 Range/Units 07:44 BUN 37 H (9-20) mg/dL Creatinine 1.53 H (0.66-1.25) mg/dL Glucose 105 H (74-99) mg/dL Assessment and Plan Plan: 1 post laparoscopy left inguinal hernia repair: Stable continue his home meds post surgery anticoagulation will be started tomorrow hold off Xarelto until then. Continue to monitor patient hemodynamic status. 2 A. fib: No rapid ventricular spontaneous, patient heart rate is respond very well to Toprol-XL, patient has been seeing cardiology and electrophysiology for the last few years doing well with it so far. 3 Hyperlipidemia: Has been doing very well on simvastatin 40 mg a day continue medication. 4 hypertension: Continue Toprol-XL 50 mg at night and 100 mg in the morning and continue on Cozaar 50 mg daily. 5 anticoagulation: Patient has been on Xarelto 20 mg daily which will be resume tomorrow. 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 7 history of gout: Has been on allopurinol 3 in the milligrams daily stable and doing well. 8 severe GERD: Continue omeprazole at 20 mg daily. 9 stage II CK D: Continue hydration repeat lab either tomorrow or in 1 week as an outpatient. 10 DVT prophylaxis: Early mobilization and knee-high ANTONELLA hose will be done. CODE STATUS: Full code. Dr. Rodrigez thank you very much for the consult psych can be any further help to please let me know thank you.
[2019-01-01] MEDS ORDERED: TAMSULOSIN 0.4 MG CAP.ER.24H PO STA (20:04)
[2019-01-01] MEDS: DOCUSATE 100 MG CAP PO SCH (20:41)
[2019-01-01] MEDS ORDERED: LOSARTAN 50 MG TAB PO SCH (21:00)
[2019-01-01] MEDS ORDERED: METOPROLOL SUCCINATE (ER) 50 MG TAB.ER.24H PO SCH (21:00)
[2019-01-01] MEDS ORDERED: ATORVASTATIN 20 MG TAB PO SCH (21:00)
[2019-01-01 21:13] VITALS: RESP 17
[2019-01-02] MEDS: LACTATED RINGERS 1,000 ML IV SCH (04:59)
[2019-01-02 06:47] VITALS: BP 167/89; PULSE 94; TEMP 98
[2019-01-02] MEDS ORDERED: PANTOPRAZOLE 40 MG TABLET PO SCH (07:30)
[2019-01-02] MEDS: DOCUSATE 100 MG CAP PO SCH (07:31)
[2019-01-02] MEDS ORDERED: METOPROLOL SUCCINATE (ER) 100 MG TAB.ER.24H PO SCH (09:00)
[2019-01-02] MEDS ORDERED: ALLOPURINOL 300 MG TAB PO SCH (09:00)
[2019-01-02] MEDS ORDERED: ENOXAPARIN 30 MG/0.3 ML SYRINGE SQ SCH (09:00)
[2019-01-02 09:40] LABS: Calcium 9.4 mg/dL (8.4-10.2); Potassium 4.3 mmol/L (3.5-5.1)
--- NOTE | 2019-01-02 11:57 | P.PN ---
Subjective Progress Note Date: 01/02/19 CHIEF COMPLAINT: Large bowel obstruction from initial left inguinal hernia HISTORY OF PRESENT ILLNESS: The patient is a 78-year-old gentleman status post left inguinal hernia repair, POD 1. He did very well. He responded well to Flomax. Creatinine improved. He reports he is feeling well. No reports of abdominal pain. He is tolerating diet. PHYSICAL EXAM: VITAL SIGNS: Reviewed GENERAL: Well-developed in no acute distress. HEENT: No sclera icterus. Extraocular movements grossly intact. Moist buccal mucosa. Head is atraumatic, normocephalic. Hears conversational speech. No nasal drainage. NECK: Supple without lymphadenopathy. CHEST: Non-labored respirations and equal bilateral excursions. CARDIOVASCULAR: Palpable 2+ radial pulses. Irregular rate and irregular rhythm ABDOMEN: Soft. Nondistended. No peritonitis. Minimal diffuse tenderness MUSCULOSKELETAL: No clubbing, cyanosis or edema. NEUROLOGIC: No focal or lateralizing signs. Cranial nerves II through XII grossly intact. PSYCH: Appropriate affect. Alert and oriented to person, place and time. SKIN: Well perfused. Good skin turgor. LABS: Reviewed ASSESSMENT: 1. Large bowel obstruction 2. Left inguinal hernia with obstruction, initial PLAN: 1. Recommend Flomax for home. 2. Start Xarelto tomorrow. 3. May use tylenol for pain. 4. Follow up in [place] in 3 to 4 weeks. 5. All questions and discharge instructions reviewed. 6. Stable for discharge Objective - Vital Signs Vital signs: Vital Signs Temp 98.0 F 01/02/19 06:46 Pulse 94 01/02/19 06:46 Resp 17 01/02/19 07:33 BP 167/89 01/02/19 06:46 Pulse Ox 95 01/02/19 06:46 Intake & Output 01/01/19 01/02/19 01/02/19 18:59 06:59 18:59 Intake Total 2250 540 400 Output Total 5 1960 Balance 2245 -1420 400 Intake: IV 1850 Oral 400 540 400 Output: Urine 1960 Estimated Blood Loss 5 Other: Voiding Method Toilet Toilet Urinal Urinal # Voids 1 - Labs CBC & Chem 7: 01/01/19 07:44 01/02/19 08:31 Labs: Abnormal Lab Results - Last 24 Hours (Table) 02/02/19 Range/Units 08:31 BUN 24 H (9-20) mg/dL Assessment and Plan (1) Large bowel obstruction Status: Acute Code(s): K56.609 - UNSP INTESTNL OBST, UNSP TO PARTIAL VERSUS COMPLETE OBST SNOMED Code(s): 538272855 (2) Inguinal hernia with obstruction but no gangrene Status: Acute Code(s): K40.30 - UNIL INGUINAL HERNIA, W OBST, W/O GANGR, NOT SPCF RECUR SNOMED Code(s): 207666717 (3) Anticoagulant long-term use Status: Acute Code(s): Z79.01 - HOT WALKER (CURRENT) USE OF ANTICOAGULANTS SNOMED Code(s): 183410260 (4) Anxiety disorder Status: Acute Code(s): F41.9 - ANXIETY DISORDER, UNSPECIFIED SNOMED Code(s) : 222317724 (5) Aortic dissection, abdominal Status: Acute Code(s): I71.02 - DISSECTION OF ABDOMINAL AORTA SNOMED Code(s) : 724315900 (6) Atrial fibrillation Status: Acute Code(s): I48.91 - UNSPECIFIED ATRIAL FIBRILLATION SNOMED Code( s): 85135534 (7) Depressive disorder Status: Acute Code(s): F32.9 - MAJOR DEPRESSIVE DISORDER, SINGLE EPISODE, UNSPECIFIED SNOMED Code(s): 73979339 (8) Gastroesophageal reflux disease Status: Acute Code(s): K21.9 - GASTRO-ESOPHAGEAL REFLUX DISEASE WITHOUT ESOPHAGITIS SNOMED Code(s): 850790551 (9) Gout Status: Acute Code(s): M10.9 - GOUT, UNSPECIFIED SNOMED Code(s): 95882362 (10) Hyperlipidemia Status: Acute Code(s): E78.5 - HYPERLIPIDEMIA, UNSPECIFIED SNOMED Code(s): 23374208 (11) Hypertensive hypertrophic cardiomyopathy, with heart failure Status: Acute Code(s): I11.0 - HYPERTENSIVE HEART DISEASE WITH HEART FAILURE; I42.2 - OTHER HYPERTROPHIC CARDIOMYOPATHY SNOMED Code(s): 574426897 (12) Inguinal hernia, left Status: Acute Code(s): K40.90 - UNIL INGUINAL HERNIA, W/O OBST OR GANGR, NOT SPCF RECUR SNOMED Code(s): 980511861
--- NOTE | 2019-01-02 11:57 | P.DS ---
Providers Date of admission: 01/01/2019 Expected date of discharge: 01/02/19 Attending physician: Maris Nguyen Consults: 01/01/19 10:48 Consult Physician Routine Consulting Provider: Conor Snell Reason/Comments: Medical management Do you want consulting provider notified?: Yes Primary care physician: Conor Snell - Discharge Diagnosis(es) (1) Anticoagulant long-term use Status: Acute (2) Anxiety disorder Status: Acute (3) Aortic dissection, abdominal Status: Acute (4) Atrial fibrillation Status: Acute (5) Depressive disorder Status: Acute (6) Gastroesophageal reflux disease Status: Acute (7) Gout Status: Acute (8) Hyperlipidemia Status: Acute (9) Hypertensive hypertrophic cardiomyopathy, with heart failure Status: Acute (10) Inguinal hernia with obstruction but no gangrene Status: Acute (11) Inguinal hernia, left Status: Acute (12) Large bowel obstruction Status: Acute Hospital Course: POSTOPERATIVE DIAGNOSES: 1. Incarcerated left inguinal hernia with bowel obstruction involving sigmoid colon, initial 2. Chronic atrial fibrillation 3. History of aortic dissection 4. Hypertensive cardiomyopathy 5. Generalized anxiety disorder 6. Hyperlipidemia 7. Gastroesophageal reflux disease 8. Gout 9. Chronic anticoagulant therapy 10. Migraine headaches 11. Obstructive sleep apnea 12. Left inguinal lipoma, 4 x 5 cm COURSE: The patient is a 78-year-old gentleman who presents with history of incarcerated left inguinal hernia including high risk co-morbidities aortic dissection, chronic atrial fibrillation, and hypertensive cardiomyopathy. He underwent robotic left inguinal hernia repair without sequelae. He was placed on cardiac monitoring, Flomax post-op to minimize risk of urinary retention, and had medical consultation. He did very well and was stable for discharge. Procedures: OPERATION: 1. Robotic assisted da Farhad Xi laparoscopic reduction and repair of incarcerated left inguinal hernia repair with ventralight ST mesh, 11.4 cm. 2. Excision of left inguinal lipoma 4 x 5 cm, subfascial Anesthesia: GETA, local Estimated Blood Loss (ml): 5 Pathology: other (Left inguinal lipoma) Condition: stable Disposition: floor COMPLICATIONS: None. Operative Findings: 1. Large left inguinal lipoma incarcerated involving sigmoid colon, reduced after insufflation of the abdomen 2. Large direct inguinal lipoma 3 cm, Nyhus type III 3. Adhesions along right lower quadrant from previous open appendectomy undisturbed 4. Inguinal lipoma 4 x 5 cm excised along the left inguinal canal 5. Console time 24 minutes Patient Condition at Discharge: Stable Plan - Discharge Summary Discharge Rx Participant: Yes New Discharge Prescriptions: New Tamsulosin [Flomax] 0.4 mg PO DAILY #7 cap Continue Simvastatin [Zocor] 40 mg PO HS Rivaroxaban [Xarelto] 20 mg PO HS ALPRAZolam [Xanax] 0.25 mg PO TID PRN PRN Reason: Anxiety Allopurinol [Zyloprim] 300 mg PO DAILY Butalb/APAP/Caff 50-325-40Mg [Fioricet 50-325-40] 1 - 2 tab PO Q4H PRN PRN Reason: Headache Omeprazole [PriLOSEC] 20 mg PO DAILY Metoprolol Succinate [Toprol XL] 100 mg PO QAM Metoprolol Succinate (ER) [Toprol XL] 50 mg PO HS Losartan [Cozaar] 50 mg PO HS Sennosides/Docusate Sodium [Docusate Sodium-Sennosides Tab] 1 each PO DAILY PRN PRN Reason: Constipation Ketotifen Fumarate [Alaway] 1 drop BOTH EYES DAILY PRN PRN Reason: Dry Eye(S) Discharge Medication List ALPRAZolam [Xanax] 0.25 mg PO TID PRN 09/19/14 [History] Allopurinol [Zyloprim] 300 mg PO DAILY 09/19/14 [History] Rivaroxaban [Xarelto] 20 mg PO HS 09/19/14 [History] Simvastatin [Zocor] 40 mg PO HS 09/19/14 [History] Butalb/APAP/Caff 50-325-40Mg [Fioricet 50-325-40] 1 - 2 tab PO Q4H PRN 10/30/18 [History] Losartan [Cozaar] 50 mg PO HS 10/30/18 [History] Metoprolol Succinate (ER) [Toprol XL] 50 mg PO HS 10/30/18 [History] Metoprolol Succinate [Toprol XL] 100 mg PO QAM 10/30/18 [History] Omeprazole [PriLOSEC] 20 mg PO DAILY 10/30/18 [History] Ketotifen Fumarate [Alaway] 1 drop BOTH EYES DAILY PRN 12/30/18 [History] Sennosides/Docusate Sodium [Docusate Sodium-Sennosides Tab] 1 each PO DAILY PRN 12/30/18 [History] Tamsulosin [Flomax] 0.4 mg PO DAILY #7 cap 01/02/19 [Rx] Follow up Appointment(s)/Referral(s): Maris Nguyen MD [STAFF PHYSICIAN] - 01/26/19 (please call for marlette) Patient Instructions/Handouts: Laparoscopic Herniorrhaphy (DC), Inguinal Hernia Repair (DC) Activity/Diet/Wound Care/Special Instructions: No lifting over 4 pounds in 4 weeks. May shower. No bathtub soaks. TAKE TYLENOL FOR PAIN. Start blood thinner tomorrow. Discharge Disposition: HOME SELF-CARE
--- NOTE | 2019-01-02 12:58 | P.PN ---
Subjective 78-year-old male one of my office patient with known for the last 20 years with past medical history of CAD, A. fib, GERD, hypertension, hyperlipidemia and mild memory loss who presented to the office few weeks ago with complaint of a bulging sensation and discomfort in left inguinal area was diagnosed with large inguinal hernia and encouraged to see general surgery for possible repair despite the mild comorbidity. Patient ended up seen Dr. Rodrigez and was scheduled for elective up rescue because of inguinal hernia repair which was done today successfully. Patient has been off his anticoagulation for the last few days he was admitted to the hospital after the surgery. 2: Patient sitting up in bed, tolerating diet. Patient is urinating without difficulty and passing gas. He has been off anticoagulation for the last few days, will start Xarelto tonight. Objective - Vital Signs Vital signs: Vital Signs Temp 98.0 F 01/02/19 06:46 Pulse 94 01/02/19 06:46 Resp 17 01/02/19 06:46 BP 167/89 01/02/19 06:46 Pulse Ox 95 01/02/19 06:46 Intake & Output 01/01/19 01/02/19 01/02/19 18:59 06:59 18:59 Intake Total 2250 540 Output Total 5 1960 Balance 2245 -1420 Intake: IV 1850 Oral 400 540 Output: Urine 1960 Estimated Blood Loss 5 Other: Voiding Method Toilet Urinal # Voids 1 - Constitutional General appearance: Present: cooperative, no acute distress - EENT Eyes: Present: EOMI, PERRLA - Neck Neck: Absent: lymphadenopathy, rigidity, stridor, thyromegaly - Respiratory Respiratory: bilateral: CTA, negative: diminished, dullness, rales, rhonchi - Cardiovascular Rhythm: regular Heart sounds: normal: S1 - Gastrointestinal General gastrointestinal: Present: normal bowel sounds, soft. Absent: distended , hepatomegaly, organomegaly - Neurologic Neurologic: Present: CNII-XII intact. Absent: focal deficits - Musculoskeletal Musculoskeletal: Present: gait normal, strength equal bilaterally. Absent: right sided weakness, left sided weakness - Psychiatric Psychiatric: Present: A&O x's 3 - Labs CBC & Chem 7: 01/01/19 07:44 01/02/19 08:31 Labs: Abnormal Lab Results - Last 24 Hours (Table) 02/01/19 Range/Units 07:44 BUN 37 H (9-20) mg/dL Creatinine 1.53 H (0.66-1.25) mg/dL Glucose 105 H (74-99) mg/dL Assessment and Plan Plan: 1 post laparoscopy left inguinal hernia repair: Stable, continue home medications and start Xarelto tonight 2 A. fib: No rapid ventricular spontaneous, patient heart rate is respond very well to Toprol-XL, patient has been seeing cardiology and electrophysiology for the last few years doing well with it so far. 3 Hyperlipidemia: Continue simvastatin 40 mg. 4 hypertension: Continue Toprol-XL 50 mg at night and 100 mg in the morning and continue on Cozaar 50 mg daily. 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 7 history of gout: Has been on allopurinol 3 in the milligrams daily stable and doing well. 8 severe GERD: Continue omeprazole at 20 mg daily. 9 stage II CK D: Continue hydration repeat lab either tomorrow or in 1 week as an outpatient. 10 DVT prophylaxis: Early mobilization and knee-high ANTONELLA hose will be done. CODE STATUS: Full code. The above impression and plan of care have been discussed and directed by signing physician. Amber Hawkins nurse practitioner acting as scribe for signing physician.
--- NOTE | 2019-01-03 20:05 | P.ONQ ---
Anesthesiology Proc Note - PNB - Peripheral Nerve Block Performed Left Transversus Abdominis Single Time Out Performed: Yes Procedure Start Time: 08:11 Procedure Stop Time: 08:17 Indication: Acute Post-Operative Pain, Requested by physician Sedation Type: Sedate with meaningful contact maintained Preparation: Sterile Prep Position: Supine Needle Size: 50mm (2") Needle Gauge: 21 Technique: Ultrasound Injectate: 0.5% Ropivacaine (see comment for volume) (ropi .5% 20cc plus xylo1% 10cc) Blood Aspirated: No Pain Paresthesia on Injection Noted: No Resistance on Injection: Normal Events: Uneventful and Well Tolerated
== END 2019-01-02 12:37 | disposition home or self-care (01) ==
LOC: OR 06:48 → 4SSUR 10:24 → OR 01-02 12:37
PROVIDERS: ATTEND Surgery Plastic and Reconstructive Surgery
DX: K40.30 Unilateral inguinal hernia, with obstruction, without gangrene, not specified as recurrent (principal); D17.1 Benign lipomatous neoplasm of skin and subcutaneous tissue of trunk; I48.2 Chronic atrial fibrillation; Z79.01 Long term (current) use of anticoagulants; K59.00 Constipation, unspecified; I71.02 Dissection of abdominal aorta; K21.9 Gastro-esophageal reflux disease without esophagitis; E78.5 Hyperlipidemia, unspecified; I13.0 Hypertensive heart and chronic kidney disease with heart failure and stage 1 through stage 4 chronic kidney disease, or unspecified chronic kidney disease; N18.2 Chronic kidney disease, stage 2 (mild); I50.9 Heart failure, unspecified; I43 Cardiomyopathy in diseases classified elsewhere; Z87.891 Personal history of nicotine dependence; R41.3 Other amnesia; M19.90 Unspecified osteoarthritis, unspecified site; G47.33 Obstructive sleep apnea (adult) (pediatric); Z99.89 Dependence on other enabling machines and devices; Z85.828 Personal history of other malignant neoplasm of skin; Z86.73 Personal history of transient ischemic attack (TIA), and cerebral infarction without residual deficits; F41.1 Generalized anxiety disorder; F32.9 Major depressive disorder, single episode, unspecified; I49.5 Sick sinus syndrome; M10.9 Gout, unspecified; H04.129 Dry eye syndrome of unspecified lacrimal gland; Z82.49 Family history of ischemic heart disease and other diseases of the circulatory system; Z79.891 Long term (current) use of opiate analgesic; Z79.899 Other long term (current) drug therapy
CPT/HCPCS: 64486; 80053; 80048; 85025; 85610; 88302; C1781; J1644; J1100; J2710; J2405; J2001; J3010; J1650; J0131; J2370; J0330; J2704; J1170; J0690

== ENCOUNTER → 2019-06-18 | Outpatient (CLI) | payer MEDICARE ==
--- NOTE | 2019-06-18 14:33 | MR ---
EXAMINATION TYPE: MR brain wo con DATE OF EXAM: 06/18/2019 1:49 PM COMPARISON: NONE HISTORY: Memory loss FINDINGS: The ventricles, basal cisterns and sulci overlying the cerebral convexities are moderately enlarged. There is evidence of mildly periventricular white matter ischemic demyelination. Remote deep white matter insults are also noted. Small area of remote insult left MCA territory. No acute edema is seen on diffusion weighted imaging. There is no evidence for midline shift or mass effect. Acute intracranial hemorrhage or extra-axial collection is not evident. The paranasal sinuses and mastoid air cells are well-aerated. IMPRESSION: Age-related atrophic and chronic small vessel ischemic change. No acute intracranial process at this time.
== END | disposition home or self-care (01) ==
LOC: RADMRIMAIN 12:31
PROVIDERS: ATTEND Psychiatry & Neurology Neurology
DX: G31.1 Senile degeneration of brain, not elsewhere classified (principal); I67.82 Cerebral ischemia
CPT/HCPCS: 70551

== ENCOUNTER → 2020-06-26 | Outpatient (CLI) | payer MEDICARE ==
[2020-06-26 20:27] LABS: Albumin 4.1 g/dL (3.80-4.90); Albumin/Globulin Ratio 1.78 (1.60-3.17); Anion Gap 8.7 mmol/L (4.00-12.00); Calcium 9.1 mg/dL (8.7-10.3); Carbon Dioxide 24.3 mmol/L (21.6-31.8); Chol/HDL Ratio 4.02; Globulin 2.3 g/dL (1.6-3.3); LDL Cholesterol,Calculated 99.6 mg/dL (0.0-131.0); Non-African American GFR(CKD) 70.8 (60.0-200.0); Total Bilirubin 0.7 mg/dL (0.2-1.2); Total Protein 6.4 g/dL (6.2-8.2); VLDL Calculation 30.4 mg/dL (5.00-40.00)
== END | disposition home or self-care (01) ==
LOC: LABWHC1 09:45
PROVIDERS: ATTEND Internal Medicine Clinical Cardiac Electrophysiology
DX: I48.91 Unspecified atrial fibrillation (principal); I10 Essential (primary) hypertension; R60.9 Edema, unspecified
CPT/HCPCS: 36415; 80053; 80061; 84443

== ENCOUNTER → 2020-10-11 | Outpatient (CLI) | payer MEDICARE ==
--- NOTE | 2020-10-11 16:14 | US ---
EXAMINATION TYPE: US venous doppler duplex LE DATE OF EXAM: 10/11/2020 3:00 PM COMPARISON: NONE CLINICAL HISTORY: I82.409 DVT. Bilateral leg edema SIDE PERFORMED: Bilateral TECHNIQUE: The lower extremity deep venous system is examined utilizing real time linear array sonog merlyn with graded compression, doppler sonography and color-flow sonography. VESSELS IMAGED: Common Femoral Vein Deep Femoral Vein Greater Saphenous Vein * Femoral Vein Popliteal Vein Small Saphenous Vein * Proximal Calf Veins (* superficial vessels) Right Leg: Negative for DVT Left Leg: Negative for DVT Grayscale, color doppler, spectral doppler imaging performed of the deep veins of the bilateral lower extremities. There is normal flow, compressibility, vascular waveforms. IMPRESSION: No ultrasound evidence for acute DVT in either lower extremity.
[2020-10-11 16:15] LABS: T4, Free (Free Thyroxine) 0.81 ng/dL (0.78-2.19)
== END | disposition home or self-care (01) ==
LOC: RADUSMAIN 14:35
PROVIDERS: ATTEND Internal Medicine Clinical Cardiac Electrophysiology
DX: I82.403 Acute embolism and thrombosis of unspecified deep veins of lower extremity, bilateral (principal); I48.20 Chronic atrial fibrillation, unspecified
CPT/HCPCS: 84439; 84443; 93970

== ENCOUNTER 2021-04-26 10:49 | Inpatient (IN) | payer MEDICARE ==
[2021-04-26] MEDS ORDERED: DILTIAZEM DRIP BOLUS FROM BAG 1 MG SOLN IV ONE (11:13)
[2021-04-26] MEDS ORDERED: DILTIAZEM 125 MG in SODIUM CHLORIDE 0.9% 100 ML IV SCH (11:15)
--- NOTE | 2021-04-26 11:15 | ED ---
General Adult HPI - General Chief complaint: Arrhythmia/Palpitations Stated complaint: elevated heart rate Time Seen by Provider: 04/26/21 10:55 Source: patient, family, RN notes reviewed Mode of arrival: ambulatory Limitations: no limitations - History of Present Illness Initial comments: Patient is a pleasant 80-year-old male presenting to the emergency Department with concerns for tachycardia. Patient does have history of atrial fibrillation. Patient has been off of a couple of his medications for possibly a couple of weeks. Patient states he feels fine. No chest pain or dyspnea. No palpitations. Patient states he normally is not able to tell when his heart rate is running fast. Patient was at his primary care physicians and noticed to be in A. fib with a rate of 140. EKG sent and reviewed. - Related Data Home Medications Medication Instructions Recorded Confirmed No Known Home Medications 04/26/21 04/26/21 Allergies Allergy/AdvReac Type Severity Reaction Status Date / Time No Known Allergies Allergy Verified 04/26/21 10:54 Review of Systems ROS Statement: Those systems with pertinent positive or pertinent negative responses have been documented in the HPI. ROS Other: All systems not noted in ROS Statement are negative. Constitutional: Denies: fever Eyes: Denies: eye pain ENT: Denies: ear pain Respiratory: Denies: cough Cardiovascular: Denies: chest pain, palpitations Endocrine: Denies: fatigue Gastrointestinal: Denies: abdominal pain Genitourinary: Denies: urgency Musculoskeletal: Denies: back pain Skin: Denies: rash Neurological: Denies: weakness Past Medical History Past Medical History: Atrial Fibrillation, Cancer, Eye Disorder, GERD/Reflux, Hyperlipidemia, Hypertension, Memory Impairment, Osteoarthritis (OA), Sleep Apnea/CPAP/BIPAP Additional Past Medical History / Comment(s): TIA 2008 affected speech but he is back to normal, Sick sinus syndrome, CARDIOMEGALY, GOUT, CONSTIPATION, BASAL CELL SKIN CANCER. HAS C-PAP MACHINE BUT DOES NOT USE BECAUSE IT NEEDS CLEANING., VERY DRY EYES, STATES HEPATITIS YEARS AGO., STATES RASH OR IRRITATION IN HIS GROIN-WAS USING CREAM FROM DR SNELL IN THE PAST., HERNIA LEFT GROIN., CHRONIC DISSECTION ABD AORTA. History of Any Multi-Drug Resistant Organisms: None Reported Past Surgical History: Appendectomy, Cholecystectomy, Heart Catheterization Additional Past Surgical History / Comment(s): 01/03/15 Total L knee arthroplasty. LT EYE CATARACT, RT KNEE ARTHROCOPY AND REPAIR OF MENISCUS TEAR, COLONOSCOPY, ORIF LT WRIST Past Anesthesia/Blood Transfusion Reactions: No Reported Reaction Past Psychological History: Anxiety, Depression Smoking Status: Never smoker Past Alcohol Use History: Daily Past Drug Use History: None Reported - Past Family History Father Family Medical History: Myocardial Infarction (NH) Additional Family Medical History / Comment(s): Father at age 51 yrs of an NH. Mother Family Medical History: Hypertension Additional Family Medical History / Comment(s): Mother at age 34 yrs from suicide. General Exam Limitations: no limitations General appearance: alert, in no apparent distress Head exam: Present: normocephalic Eye exam: Present: normal appearance Neck exam: Present: normal inspection Respiratory exam: Present: normal lung sounds bilaterally Cardiovascular Exam: Present: tachycardia, irregular rhythm Expanded Peripheral pulses: 2+: Radial (R), Radial (L), Posterior Tibialis (R), Posterior Tibialis (L) GI/Abdominal exam: Present: soft. Absent: tenderness Extremities exam: Present: pedal edema. Absent: calf tenderness Neurological exam: Present: alert Psychiatric exam: Present: normal affect, normal mood Skin exam: Present: normal color Course Vital Signs 04/26/21 04/26/21 04/26/21 10:51 12:00 13:20 Temperature 97.3 F L 97.5 F L Pulse Rate 131 H 133 H 100 Pulse Rate [ [employer] ] Respiratory 16 18 18 Rate Blood Pressure 207/97 154/107 204/106 O2 Sat by Pulse 97 96 94 L Oximetry 04/26/21 04/26/21 13:36 13:39 Temperature Pulse Rate 113 H Pulse Rate [ 115 H [employer] ] Respiratory 16 Rate Blood Pressure 203/91 O2 Sat by Pulse 96 Oximetry EKG Findings - EKG Comments: EKG Findings:: A. fib with RVR, rate 129. QRS 88. QT 322. QTC 471. Right axis. Normal QRS. No acute ST change. PVC present. Medical Decision Making - Medical Decision Making Patient reevaluated. Heart rate has improved to between 113 and 1:30. Blood pressure remains high. Patient and family updated on results and plan. Case was discussed in detail with Dr. Snell, who will admit his patient with card iology consult. - Lab Data Result diagrams: 04/26/21 11:39 04/26/21 11:39 Lab Results 04/26/21 04/26/21 04/26/21 Range/Units 11:39 11:39 11:39 WBC 5.2 (3.8-10.6) k/uL RBC 4.76 (4.30-5.90) m/uL Hgb 15.4 (13.0-17.5) gm/dL Hct 47.4 (39.0-53.0) % MCV 99.5 (80.0-100.0) fL MCH 32.3 (25.0-35.0) pg MCHC 32.5 (31.0-37.0) g/dL RDW 14.8 (11.5-15.5) % Plt Count 120 L (150-450) k/uL MPV 12.2 Neutrophils % 67 % Lymphocytes % 20 % Monocytes % 6 % Eosinophils % 3 % Basophils % 1 % Neutrophils # 3.5 (1.3-7.7) k/uL Lymphocytes # 1.1 (1.0-4.8) k/uL Monocytes # 0.3 (0-1.0) k/uL Eosinophils # 0.2 (0-0.7) k/uL Basophils # 0.1 (0-0.2) k/uL Macrocytosis Slight PT 12.4 H (9.0-12.0) sec INR 1.2 H (<1.2) APTT 28.0 (22.0-30.0) sec Sodium 138 (137-145) mmol/L Potassium 3.8 (3.5-5.1) mmol/L Chloride 104 (98-107) mmol/L Carbon Dioxide 28 (22-30) mmol/L Anion Gap 6 mmol/L BUN 15 (9-20) mg/dL Creatinine 0.95 (0.66-1.25) mg/dL Est GFR (CKD-EPI)AfAm 87 (>60 ml/min/1.73 sqM) Est GFR (CKD-EPI)NonAf 75 (>60 ml/min/1.73 sqM) Glucose 106 H (74-99) mg/dL Calcium 9.5 (8.4-10.2) mg/dL Magnesium 1.7 (1.6-2.3) mg/dL Total Bilirubin 0.5 (0.2-1.3) mg/dL AST 31 (17-59) U/L ALT 21 (4-49) U/L Alkaline Phosphatase 100 (38-126) U/L Troponin I (0.000-0.034) ng/mL NT-Pro-B Natriuret Pep pg/mL Total Protein 7.1 (6.3-8.2) g/dL Albumin 4.4 (3.5-5.0) g/dL TSH 1.390 (0.465-4.680) mIU/L Free T4 0.95 (0.78-2.19) ng/dL Free T3 pg/mL 4.1 (2.8-5.3) pg/ml 04/26/21 04/26/21 Range/Units 11:39 11:39 WBC (3.8-10.6) k/uL RBC (4.30-5.90) m/uL Hgb (13.0-17.5) gm/dL Hct (39.0-53.0) % MCV (80.0-100.0) fL MCH (25.0-35.0) pg MCHC (31.0-37.0) g/dL RDW (11.5-15.5) % Plt Count (150-450) k/uL MPV Neutrophils % % Lymphocytes % % Monocytes % % Eosinophils % % Basophils % % Neutrophils # (1.3-7.7) k/uL Lymphocytes # (1.0-4.8) k/uL Monocytes # (0-1.0) k/uL Eosinophils # (0-0.7) k/uL Basophils # (0-0.2) k/uL Macrocytosis PT (9.0-12.0) sec INR (<1.2) APTT (22.0-30.0) sec Sodium (137-145) mmol/L Potassium (3.5-5.1) mmol/L Chloride (98-107) mmol/L Carbon Dioxide (22-30) mmol/L Anion Gap mmol/L BUN (9-20) mg/dL Creatinine (0.66-1.25) mg/dL Est GFR (CKD-EPI)AfAm (>60 ml/min/1.73 sqM) Est GFR (CKD-EPI)NonAf (>60 ml/min/1.73 sqM) Glucose (74-99) mg/dL Calcium (8.4-10.2) mg/dL Magnesium (1.6-2.3) mg/dL Total Bilirubin (0.2-1.3) mg/dL AST (17-59) U/L ALT (4-49) U/L Alkaline Phosphatase (38-126) U/L Troponin I <0.012 (0.000-0.034) ng/mL NT-Pro-B Natriuret Pep 1230 pg/mL Total Protein (6.3-8.2) g/dL Albumin (3.5-5.0) g/dL TSH (0.465-4.680) mIU/L Free T4 (0.78-2.19) ng/dL Free T3 pg/mL (2.8-5.3) pg/ml - Radiology Data Radiology results: image reviewed (Chest x-ray shows mild cardiomegaly and chronic parenchymal changes without acute process.) Critical Care Time Critical Care Time: Yes Total Critical Care Time: 33 Disposition Clinical Impression: Atrial fibrillation with RVR, Hypertension Disposition: ADMITTED IP TO THIS [facility] Condition: Serious Is patient prescribed a controlled substance at d/c from ED?: No Referrals: Conor Snell MD [Primary Care Provider] - 1-2 days Decision Time: 14:02
[2021-04-26 12:00] LABS: INR 1.2 (<1.2); Prothrombin Time 12.4 sec (9.0-12.0)
[2021-04-26 12:03] LABS: Albumin 4.4 g/dL (3.5-5.0); Calcium 9.5 mg/dL (8.4-10.2); Magnesium 1.7 mg/dL (1.6-2.3); Potassium 3.8 mmol/L (3.5-5.1); Total Bilirubin 0.5 mg/dL (0.2-1.3); Total Protein 7.1 g/dL (6.3-8.2)
[2021-04-26 12:18] LABS: Basophils # (A) 0.1 k/uL (0-0.2); Basophils % (A) 1 %; Eosinophils # (A) 0.2 k/uL (0-0.7); Eosinophils % (A) 3 %; HCT 47.4 % (39.0-53.0); HGB 15.4 gm/dL (13.0-17.5); Lymphocytes # (A) 1.1 k/uL (1.0-4.8); Lymphocytes % (A) 20 %; MCH 32.3 pg (25.0-35.0); MCHC 32.5 g/dL (31.0-37.0); MCV 99.5 fL (80.0-100.0); Macrocytosis Slight; Mean Platelet Volume 12.2; Monocytes # (A) 0.3 k/uL (0-1.0); Monocytes % (A) 6 %; Neutrophils # (A) 3.5 k/uL (1.3-7.7); Neutrophils % (A) 67 %; Platelet Count 120 k/uL (150-450); RBC 4.76 m/uL (4.30-5.90); RDW 14.8 % (11.5-15.5); WBC 5.2 k/uL (3.8-10.6)
[2021-04-26 12:20] LABS: T4, Free (Free Thyroxine) 0.95 ng/dL (0.78-2.19)
--- NOTE | 2021-04-26 12:56 | XR ---
EXAMINATION TYPE: XR chest 1V portable DATE OF EXAM: 04/26/2021 COMPARISON: Chest x-ray October 29, 2018 HISTORY: Tachycardia. TECHNIQUE: Single AP portable frontal upright view of the chest is obtained. FINDINGS: There a chronic parenchymal changes bilaterally greatest in the bases with interval progre ssion from prior. No suspicious focal airspace opacity, pleural effusion, or pneumothorax seen bilat erally. The cardiac silhouette size is more prominent and now mildly enlarged with atherosclerotic ao rta. The osseous structures are demineralized. Overlying EKG leads on current study. Cholecystectom y clips noted. IMPRESSION: Mild cardiomegaly and chronic parenchymal changes without new suspicious acute pulmonary process.
[2021-04-26] MEDS ORDERED: NALOXONE 0.4 MG/ML 1 ML VIAL IV PRN (14:03)
[2021-04-26] MEDS ORDERED: HEPARIN SODIUM 1,000 UN/ML (10ML VL) IV PRN (14:06)
[2021-04-26] MEDS ORDERED: HEPARIN SOD,PORK IN 0.45% NACL 25,000 UNIT in 0.45% NACL 1 250ML.BAG IV SCH (14:15)
[2021-04-26] MEDS: METOPROLOL TARTRATE 25 MG TAB PO SCH ×2 (14:49→22:24)
[2021-04-26] MEDS: SODIUM CHLORIDE 0.9% 1,000 ML IV SCH (15:13)
[2021-04-26] MEDS ORDERED: HEPARIN SODIUM 1,000 UN/ML (10ML VL) IV ONE (15:15)
[2021-04-26] MEDS: SPIRONOLACTONE 25 MG TAB PO SCH (15:19)
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
[2021-04-26] MEDS: FAMOTIDINE 20 MG TAB PO SCH (22:24)
[2021-04-27 07:55] LABS: Basophils # (A) 0.1 k/uL (0-0.2); Basophils % (A) 1 %; Eosinophils # (A) 0.2 k/uL (0-0.7); Eosinophils % (A) 3 %; HCT 45.3 % (39.0-53.0); HGB 14.4 gm/dL (13.0-17.5); Lymphocytes # (A) 1.2 k/uL (1.0-4.8); Lymphocytes % (A) 21 %; MCH 31.9 pg (25.0-35.0); MCHC 31.7 g/dL (31.0-37.0); MCV 100.6 fL (80.0-100.0); Macrocytosis Slight; Mean Platelet Volume 11.5; Monocytes # (A) 0.4 k/uL (0-1.0); Monocytes % (A) 6 %; Neutrophils # (A) 3.8 k/uL (1.3-7.7); Neutrophils % (A) 67 %; Platelet Count 129 k/uL (150-450); RDW 14.9 % (11.5-15.5); WBC 5.7 k/uL (3.8-10.6)
[2021-04-27 08:04] LABS: INR 1.1 (<1.2); Partial Thromboplastin Time 54.4 sec (22.0-30.0); Prothrombin Time 11.5 sec (9.0-12.0)
[2021-04-27] MEDS ORDERED: METOPROLOL SUCCINATE (ER) 100 MG TAB.ER.24H PO SCH (09:00)
[2021-04-27] MEDS: FUROSEMIDE 20 MG TAB PO SCH ×2 (10:11→16:43)
[2021-04-27] MEDS: SPIRONOLACTONE 25 MG TAB PO SCH (10:11)
[2021-04-27] MEDS: FAMOTIDINE 20 MG TAB PO SCH (10:12)
[2021-04-27 12:10] LABS: Large Platelets Present
[2021-04-27 12:12] VITALS: TEMP 97.8
--- NOTE | 2021-04-27 12:45 | P.CRDCN ---
History of Present Illness History of present illness: HISTORY OF PRESENTING ILLNESS This is a pleasant 80-year-old male past medical history significant for with persistent atrial fibrillation, hypertension and memory impairment. He follows in the office with Dr. Sanders. We have been asked to see in consultation for atrial fibrillation. The patient was seen and examined resting comfortably in bed in no acute distress. He is somewhat confused at baseline although he answers questions appropriately. He states he was at his doctor's office yesterday and was sent to the hospital because his heart was going fast. He has no specific symptoms of chest pain, shortness of breath, dizziness or palpitations. According to the patient he follows with Dr. Montejo however he has not been taking his medications because of some sort of air with the pharmacy. He states he's trying to get that back on track. On arrival EKG revealed atrial fibrillation with heart rate of 129. He was initiated on IV heparin and Cardizem infusions. Currently this morning his heart rate is in the 80s. Chest x-ray reveals mild cardiomegaly and chronic parenchymal changes with no acute cardiopulmonary process. Laboratory data reviewed, WBC 5.7, hemoglobin 14.4, platelets 129, sodium 138, potassium 3.8, creatinine 0.95, magnesium 1.7, troponin negative 1, NT proBNP 1230 and TSH 1.39. Current medication according to Dr. Montejo's previous office note from October 2020 revealed atorvastatin 40 mg daily, Lasix 40 mg twice a day, losartan 50 mg daily, Toprol 100 mg in the morning and 50 mg at bedtime, Aldactone 25 mg daily and Xarelto 20 mg daily. Most recent echocardiogram obtained in the office August 2020 revealed preserved LV systolic function with ejection fraction 55%, severely dilated left atrium, mild to moderate mitral regurgitation, mildly calcified aortic valve, mild tricuspid regurgitation and moderate pulmonary hypertension with an RVSP of 33 mmHg. REVIEW OF SYSTEMS At the time of my exam: CONSTITUTIONAL: Denies fever or chills. CARDIOVASCULAR: Denies chest pain, shortness of breath, orthopnea, PND or palpitations. RESPIRATORY: Denies cough. GASTROINTESTINAL: Denies abdominal pain, diarrhea, constipation, nausea or vomiting. MUSCULOSKELETAL: Denies myalgias. NEUROLOGIC: Denies numbness, tingling, headacbe or weakness. ENDOCRINE: Denies fatigue, weight change, polydipsia or polyurina. GENITOURINARY: Denies burning, hematuria or urgency with micturation. HEMATOLOGIC: Denies history of anemia or bleeding. PHYSICAL EXAMINATION Blood pressure 130/84 heart rate 84 afebrile and maintaining oxygen saturation on room air. CONSTITUTIONAL: No apparent distress. HEENT: Head is normocephalic. Pupils are equal, round. Sclerae anicteric. Mucous membranes of the mouth are moist. No JVD. No carotid bruit. CHEST EXAMINATION: Lungs are clear to auscultation. No chest wall tenderness is noted on palpation or with deep breathing. HEART EXAMINATION: Irregular rate and rhythm. S1, S2 heard. No murmurs, gallops or rub. ABDOMEN: Soft, nontender. Positive bowel sounds. EXTREMITIES: 2+ peripheral pulses, no lower extremity edema and no calf tenderness. NEUROLOGIC EXAMINATION: Patient is awake, alert and oriented x3. ASSESSMENT Chronic persistent atrial fibrillation with rapid ventricular rate Hypertension Dyslipidemia Memory impairment Medication noncompliance PLAN Resume Xarelto 20 mg daily and discontinue heparin infusion. Discontinue Cardizem infusion and resume Toprol as previously ordered. Resume Lasix 20 mg twice a day. Pt can be discharged from a cardiac perspective. Follow up with Dr. Sanders. Thank you kindly for this consultation. Nurse Practitioner note has been reviewed, I agree with a documented findings and plan of care. Patient was seen and examined. Past Medical History Past Medical History: Atrial Fibrillation, Cancer, Eye Disorder, GERD/Reflux, Hyperlipidemia, Hypertension, Memory Impairment, Osteoarthritis (OA), Sleep Apnea/CPAP/BIPAP Additional Past Medical History / Comment(s): TIA 2008 affected speech but he is back to normal, Sick sinus syndrome, CARDIOMEGALY, GOUT, CONSTIPATION, BASAL CELL SKIN CANCER. HAS C-PAP MACHINE BUT DOES NOT USE BECAUSE IT NEEDS CLEANING., VERY DRY EYES, STATES HEPATITIS YEARS AGO., STATES RASH OR IRRITATION IN HIS GROIN-WAS USING CREAM FROM DR VIZCARRA IN THE PAST., HERNIA LEFT GROIN., CHRONIC DISSECTION ABD AORTA. History of Any Multi-Drug Resistant Organisms: None Reported Past Surgical History: Appendectomy, Cholecystectomy, Heart Catheterization Additional Past Surgical History / Comment(s): 01/03/15 Total L knee arthroplasty. LT EYE CATARACT, RT KNEE ARTHROCOPY AND REPAIR OF MENISCUS TEAR, COLONOSCOPY, ORIF LT WRIST Past Anesthesia/Blood Transfusion Reactions: No Reported Reaction Smoking Status: Former smoker - Past Family History Father Family Medical History: Myocardial Infarction ([place]) Additional Family Medical History / Comment(s): Father at age 51 yrs of an [place]. Mother Family Medical History: Hypertension Additional Family Medical History / Comment(s): Mother at age 34 yrs from suicide. Medications and Allergies Home Medications Medication Instructions Recorded Confirmed Type Allopurinol [Zyloprim] 300 mg PO DAILY #30 tablet 04/27/21 Rx Furosemide [Lasix] 20 mg PO BID@0900,1600 #60 tab 04/27/21 Rx Losartan Potassium [Cozaar] 50 mg PO AC-SUPPER #30 tablet 04/27/21 Rx Metoprolol Succinate (ER) [Toprol 50 mg PO HS #60 tab.er.24h 04/27/21 Rx XL] Metoprolol Succinate (ER) [Toprol 100 mg PO DAILY #60 tab.er.24h 04/27/21 Rx XL] Omeprazole 20 mg PO DAILY #60 tablet.dr 04/27/21 Rx Rivaroxaban [Xarelto] 20 mg PO W/SUPPER #30 cap 04/27/21 Rx Spironolactone [Aldactone] 50 mg PO DAILY #30 tab 04/27/21 Rx Allergies Allergy/AdvReac Type Severity Reaction Status Date / Time No Known Allergies Allergy Verified 04/26/21 10:54 Physical Exam Vitals: Vital Signs Temp Pulse Pulse Resp BP BP Pulse Ox 04/27/21 04:00 97.9 F 88 17 135/92 97 04/26/21 23:50 92 137/78 04/26/21 22:10 97.5 F L 76 18 186/98 96 04/26/21 21:00 16 04/26/21 18:57 61 16 150/74 97 04/26/21 18:47 98.1 F 74 16 162/99 96 04/26/21 16:55 77 16 131/100 97 04/26/21 16:03 85 18 185/97 97 04/26/21 13:39 115 H 04/26/21 13:36 113 H 16 203/91 96 04/26/21 13:20 97.5 F L 100 18 204/106 94 L 04/26/21 12:00 133 H 18 154/107 96 04/26/21 10:51 97.3 F L 131 H 16 207/97 97 Intake and Output 04/26/21 04/27/21 04/27/21 22:59 06:59 14:59 Intake Total 113.272 Balance 113.272 Intake: Intake, IV Titration 113.272 Amount Diltiazem 125 mg In 53.667 Sodium Chloride 0.9% 100 ml @ 5 MG/HR 5 mls/hr IV .Q24H [facility] Rx#:[id number] Heparin Sod,Pork in 0.45% 59.605 NaCl 25,000 unit In 0.45 % NaCl 1 250ml.bag @ 12 UNITS/KG/HR 8.165 mls/hr IV .Q24H [facility] Rx#: [id number] Other: Voiding Method Toilet Toilet # Voids 1 Weight 80.5 kg 80.5 kg Results 04/27/21 07:21 04/26/21 11:39 Cardiac Enzymes 04/26/21 04/26/21 Range/Units 11:39 11:39 AST 31 (17-59) U/L Troponin I <0.012 (0.000-0.034) ng/mL Coagulation 04/26/21 04/26/21 04/27/21 Range/Units 11:39 20:18 07:21 PT 12.4 H 11.5 (9.0-12.0) sec APTT 28.0 69.7 H 54.4 H (22.0-30.0) sec CBC 04/26/21 04/27/21 Range/Units 11:39 07:21 WBC 5.2 5.7 (3.8-10.6) k/uL RBC 4.76 4.50 (4.30-5.90) m/uL Hgb 15.4 14.4 (13.0-17.5) gm/dL Hct 47.4 45.3 (39.0-53.0) % Plt Count 120 L 129 L (150-450) k/uL Comprehensive Metabolic Panel 04/26/21 Range/Units 11:39 Sodium 138 (137-145) mmol/L Potassium 3.8 (3.5-5.1) mmol/L Chloride 104 (98-107) mmol/L Carbon Dioxide 28 (22-30) mmol/L BUN 15 (9-20) mg/dL Creatinine 0.95 (0.66-1.25) mg/dL Glucose 106 H (74-99) mg/dL Calcium 9.5 (8.4-10.2) mg/dL AST 31 (17-59) U/L ALT 21 (4-49) U/L Alkaline Phosphatase 100 (38-126) U/L Total Protein 7.1 (6.3-8.2) g/dL Albumin 4.4 (3.5-5.0) g/dL Current Medications Generic Name Dose Route Start Last Admin Trade Name Freq PRN Reason Stop Dose Admin Famotidine 20 mg 04/26/21 21:00 04/26/21 22:24 Famotidine 20 Mg Tab PO 20 mg BID [facility] Administration Furosemide 20 mg 04/27/21 09:00 Furosemide 20 Mg Tab PO BID@0900,1600 [facility] Heparin Sodium (Porcine) 0 unit 04/26/21 14:06 Heparin Sodium 1,000 Un/Ml (10ml Vl) IV PER PROTOCOL PRN Low PTT Protocol Sodium Chloride 1,000 mls @ 20 mls/hr 04/26/21 14:15 04/26/21 15:13 Saline 0.9% IV 20 mls/hr .Q24H [facility] Administration Metoprolol Succinate 100 mg 04/27/21 09:00 Metoprolol Succinate (Er) 100 Mg Tab.Er.24h PO DAILY [facility] Metoprolol Succinate 50 mg 04/27/21 21:00 Metoprolol Succinate (Er) 50 Mg Tab.Er.24h PO HS [facility] Naloxone HCl 0.2 mg 04/26/21 14:03 Naloxone 0.4 Mg/Ml 1 Ml Vial IV Q2M PRN Opioid Reversal Rivaroxaban 20 mg 04/27/21 17:30 Rivaroxaban 20 Mg Tab PO W/SUPPER [facility] Spironolactone 50 mg 04/26/21 14:15 04/26/21 15:19 Spironolactone 25 Mg Tab PO 50 mg DAILY [facility] Administration Intake and Output 04/26/21 04/27/21 04/27/21 22:59 06:59 14:59 Intake Total 113.272 Balance 113.272 Intake: Intake, IV Titration 113.272 Amount Diltiazem 125 mg In 53.667 Sodium Chloride 0.9% 100 ml @ 5 MG/HR 5 mls/hr IV .Q24H [facility] Rx#:[id number] Heparin Sod,Pork in 0.45% 59.605 NaCl 25,000 unit In 0.45 % NaCl 1 250ml.bag @ 12 UNITS/KG/HR 8.165 mls/hr IV .Q24H [facility] Rx#: [id number] Other: Voiding Method Toilet Toilet # Voids 1 Weight 80.5 kg 80.5 kg Patient Weight 04/28/21 06:59 Weight 80.5 kg 04/27/21 07:21 04/26/21 11:39
[2021-04-27 16:40] VITALS: BP 156/108; PULSE 78; RESP 18
[2021-04-27] MEDS: SODIUM CHLORIDE 0.9% 1,000 ML IV SCH (16:43)
[2021-04-27] MEDS ORDERED: RIVAROXABAN 20 MG TAB PO SCH (17:30)
[2021-04-27] MEDS ORDERED: METOPROLOL SUCCINATE (ER) 50 MG TAB.ER.24H PO SCH (21:00)
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
== END 2021-04-27 17:06 | disposition home health service (06) | DRG 308 ==
LOC: EC 10:49 → 3SCARD 14:03
PROVIDERS: ADMIT Internal Medicine Geriatric Medicine; ATTEND Internal Medicine Geriatric Medicine
DX: I48.19 Other persistent atrial fibrillation (principal); I71.02 Dissection of abdominal aorta; I25.10 Atherosclerotic heart disease of native coronary artery without angina pectoris; Z79.01 Long term (current) use of anticoagulants; Z79.899 Other long term (current) drug therapy; Z96.652 Presence of left artificial knee joint; Z87.891 Personal history of nicotine dependence; E78.5 Hyperlipidemia, unspecified; K21.9 Gastro-esophageal reflux disease without esophagitis; G47.33 Obstructive sleep apnea (adult) (pediatric); F32.9 Major depressive disorder, single episode, unspecified; F41.9 Anxiety disorder, unspecified; I11.0 Hypertensive heart disease with heart failure; I27.20 Pulmonary hypertension, unspecified; I35.8 Other nonrheumatic aortic valve disorders; I50.9 Heart failure, unspecified; K29.70 Gastritis, unspecified, without bleeding; K44.9 Diaphragmatic hernia without obstruction or gangrene; Z20.822 Contact with and (suspected) exposure to COVID-19; Z85.828 Personal history of other malignant neoplasm of skin; Z86.73 Personal history of transient ischemic attack (TIA), and cerebral infarction without residual deficits; Z91.14 Patient's other noncompliance with medication regimen; K59.00 Constipation, unspecified; M10.9 Gout, unspecified; M19.90 Unspecified osteoarthritis, unspecified site
CPT/HCPCS: 36415; 71045; 80053; 83735; 83880; 84439; 84443; 84481; 84484; 85025; 85610; 85730; 87635; 93005; 96365; 96366; 96375; 99285